=== PATIENT | male | born 1990 | race African-American/Black ===

== ENCOUNTER 2018-06-13 09:59 | Inpatient (IN) | payer OTHER ==
[2018-06-13 12:03] VITALS: BMI 21.6
--- NOTE | 2018-06-13 13:00 | HP ---
COWS - Scale Resting Pulse: 0= [place] 80 or Below Sweatin= Chills/Flushing Restless Observation: 3= Extraneous Movement Pupil Size: 1= Pupils >than Normal Bone or Joint Aches: 2= Severe Diffuse Aches Runny Nose/ Eye Tearin= Runny Nose/Eyes GI Upset > 30mins: 2= Nausea/Diarrhea Tremor Observation: 2= Slight Tremor Visible Yawning Observation: 2= >3x During Session Anxiety or Irritability: 2=Irritable/Anxious Goose Flesh Skin: 0=Smooth Skin COWS Score: 17 CIWA Score - CIWA Score Nausea/Vomitin Muscle Tremors: 3 Anxiety: 2 Agitation: 2 Paroxysmal Sweats: 1-Minimal Palms Moist Orientation: 0-Oriented Tacttile Disturbances: 1-Very Mild Itch/Numbness Auditory Disturbances: 1-Very Mild Visual Disturbances: 1-Very Mild Sensitivity Headache: 2-Mild CIWA-Ar Total Score: 15 Admission ROS BHS - HPI Chief Complaint: i need help to stop using heroin and xanax and marijuana Allergies/Adverse Reactions: Allergies Allergy/AdvReac Type Severity Reaction Status Date / Time No Known Allergies Allergy Verified 06/13/18 12:51 History of Present Illness: this 27 years old male with heroin,xanax and marijuana dependence,seeking detox, withdrawal symptom,last detox 2017 [place] nicotine dependence weight loss blackout multiple admissions in detox,keep relapsing anxiety,depression,insomnia no significant period of sobriety nicotine dependence - Ebola screening Have you traveled outside of the country in the last 21 days: No Have you had contact with anyone from an Ebola affected area: No Have you been sick,other than usual withdrawal symptoms: No Do you have a fever: No - Review of Systems Constitutional: Chills, Loss of Appetite, Malaise, Night Sweats, Changes in sleep, Weakness EENT: reports: Tearing, Nose Congestion Respiratory: reports: No Symptoms reported Cardiac: reports: No Symptoms Reported GI: reports: Diarrhea, Nausea, Vomiting, Abdominal cramping : reports: No Symptoms Reported Musculoskeletal: reports: Back Pain, Joint Pain, Muscle Pain, Joint Stiffness Integumentary: reports: Dryness Neuro: reports: Headache, Tremors Endocrine: reports: No Symptoms Reported Hematology: reports: No Symptoms Reported Psychiatric: reports: No Sypmtoms Reported, Judgement Intact, Mood/Affect Appropiate, Orientated x3, Agitated (insomnia), Depressed Patient History - Patient Medical History Hx Anemia: No Hx Asthma: No Hx Chronic Obstructive Pulmonary Disease (COPD): No Hx Cancer: No Hx Cardiac Disorders: No Hx Congestive Heart Failure: No Hx Hypertension: No Hx Hypercholesterolemia: No Hx Pacemaker: No HX Cerebrovascular Accident: No Hx Seizures: No Hx Dementia: No Hx Diabetes: No Hx Gastrointestinal Disorders: No Hx Liver Disease: No Hx Genitourinary Disorders: No Hx Sexually Transmitted Disorders: No Hx Renal Disease (ESRD): No Hx Thyroid Disease: No Hx Human Immunodeficiency Virus (HIV): No (12/21) Hx Hepatitis C: No Hx Depression: Yes (anxiety,insomnia) Hx Suicide Attempt: No Hx Bipolar Disorder: No Hx Schizophrenia: No Other Medical History: no suicidal,no homicidal - Patient Surgical History Past Surgical History: No - PPD History Previous Implant?: Yes Documented Results: Negative w/o proof Implanted On Prior [facility] Admission?: No PPD to be Administered?: Yes - Smoking Cessation Smoking history: Current every day smoker Have you smoked in the past 12 months: Yes Aproximately how many cigarettes per day: 10 Hx Chewing Tobacco Use: Yes Initiated information on smoking cessation: Yes 'Breaking Loose' booklet given: 06/13/18 - Substance & Tx. History Hx Alcohol Use: No Hx Substance Use: Yes Substance Use Type: Heroin, Tranquilizers Hx Substance Use Treatment: Yes ([place] in 2016) - Substances Abused Heroin Route: Injection Frequency: Daily Amount used: 15 bags Age of first use: 21 Date of Last Use: 06/12/18 Alprazolam (Xanax) Route: Oral Frequency: Daily Amount used: 4mg Age of first use: 21 Date of Last Use: 06/11/18 Marijuana/Hashish Route: Smoking Frequency: 3-6 times per week Amount used: 1 gram Age of first use: 11 Date of Last Use: 06/12/18 Family Disease History - Family Disease History Family Disease History: Other: Father (dsa,alcohol) Admission Physical Exam BHS - Vital Signs Vital Signs: Vital Signs - 24 hr 06/13/18 11:58 Temperature 96.9 F L Pulse Rate 59 L Respiratory 18 Rate Blood Pressure 119/72 - Physical General Appearance: Yes: Moderate Distress, Tremorous, Irritable, Sweating, Anxious HEENTM: Yes: Normal ENT Inspection, ROSANA, Pharynx Normal Respiratory: Yes: Lungs Clear, Normal Breath Sounds, No Respiratory Distress Neck: Yes: Within Normal Limits, No masses,lesions,Nodules, Supple Breast: Yes: Within Normal Limits Cardiology: Yes: Within Normal Limits, Regular Rhythm, Regular Rate, S1, S2 Abdominal: Yes: Within Normal Limits, Normal Bowel Sounds, Non Tender, Flat, Soft Genitourinary: Yes: Within Normal Limits Back: Yes: Muscle Spasm Musculoskeletal: Yes: Back pain, Joint Stiffness, Muscle Pain Extremities: Yes: Within Normal Limits, Normal Range of Motion, Tremors Neurological: Yes: mold worker II-XII NML intact, Fully Oriented, Alert, Motor Strength 5/5 Integumentary: Yes: Dry, Track [place] Lymphatic: Yes: Within Normal Limits - Diagnostic (1) Opioid dependence with withdrawal Current Visit: Yes Status: Acute (2) Uncomplicated sedative, hypnotic or anxiolytic withdrawal Current Visit: Yes Status: Acute (3) Nicotine dependence Current Visit: Yes Status: Chronic (4) Weight loss Current Visit: Yes Status: Acute (5) IVDU (intravenous drug user) Current Visit: Yes Status: Acute (6) Insomnia secondary to depression with anxiety Current Visit: Yes Status: Acute Cleared for Admission [facility] - Detox or Rehab [facility] Level of Care: Medically Managed Detox Regimen/Protocol: Methadone/Valium S Breath Alcohol Content Breath Alcohol Content: 0 Urine Drug Screen - Results Drug Screen Negative: No Urine Drug Screen Results: THC-Marijuana, OPI-Opiates, BZO-Benzodiazepines, FEN- Fentanyl
[2018-06-13] MEDS ORDERED: IBUPROFEN 400 MG TABLET (FP) PO PRN (13:20)
[2018-06-13] MEDS ORDERED: LOPERAMIDE HCL 2 MG CAPSULE PO PRN (13:20)
[2018-06-13] MEDS ORDERED: guaiFENesin/D-METHORPHAN HB 10 ML UNIT-DOSE CUPS PO PRN (13:20)
[2018-06-13] MEDS ORDERED: P-EPHED 60MG/TRIPROLIDI 2.5MG TABLET PO PRN (13:20)
[2018-06-13] MEDS ORDERED: ACETAMINOPHEN 325 MG TABLET (FP) PO PRN (13:20)
[2018-06-13] MEDS ORDERED: MAGNESIUM CITRATE 300 ML BOTTLE PO PRN (13:20)
[2018-06-13] MEDS ORDERED: MENTHOL/PHENOL 1 EACH UD MM PRN (13:20)
[2018-06-13] MEDS ORDERED: diazePAM 5 MG TABLET PO ONE (14:00)
[2018-06-13] MEDS ORDERED: METHADONE HCL 10 MG TABLET (FOR DETOX USE ONLY) PO ONE ×2 (14:00→23:00)
[2018-06-13] MEDS ORDERED: MELATONIN 5 MG TABLETS PO PRN (22:00)
[2018-06-13] MEDS: THIAMINE HCL 100 MG TABLET (FP) PO SCH (22:06)
[2018-06-13] MEDS: cloNIDine HCL 0.1 MG TABLET PO SCH (22:07)
[2018-06-13] MEDS: CYCLOBENZAPRINE HCL 10 MG TABLET (FP) PO PRN (22:07)
[2018-06-13] MEDS: diazePAM 5 MG TABLET PO SCH (22:07)
[2018-06-14] MEDS: diazePAM 5 MG TABLET PO SCH ×3 (07:15→22:10)
[2018-06-14] MEDS: cloNIDine HCL 0.1 MG TABLET PO SCH ×2 (09:21→22:10)
[2018-06-14] MEDS: PRENATAL VITAMINS W/ FOLIC ACID TABLET (FP) PO SCH (09:21)
[2018-06-14] MEDS: diazePAM 5 MG TABLET PO PRN (09:21)
--- NOTE | 2018-06-14 09:51 | EKG ---
Test Reason : Blood Pressure : / mmHG Vent. Rate : 055 BPM Atrial Rate : 055 BPM P-R Int : 150 ms QRS Dur : 092 ms QT Int : 450 ms P-R-T Axes : 079 068 044 degrees QTc Int : 430 ms SINUS BRADYCARDIA OTHERWISE NORMAL ECG NO PREVIOUS ECGS AVAILABLE Confirmed by KALPANA MONTESINOS, NATASHA ([id number]) on 06/14/2018 9:51:19 AM Referred By: Confirmed By:NATASHA ACUNA MD
[2018-06-14] MEDS ORDERED: METHADONE HCL 10 MG TABLET (FOR DETOX USE ONLY) PO SCH (10:00)
[2018-06-14 10:04] LABS: HEMATOCRIT 41.1 % (35.4-49); HEMOGLOBIN 13.3 GM/dL (11.7-16.9); MCH 27.9 pg (25.7-33.7); MCHC 32.3 g/dl (32.0-35.9); MEAN CELL VOLUME 86.4 fl (80-96); MEAN PLT VOLUME 8.1 fl (7.5-11.1); PLATELET COUNT 214 K/MM3 (134-434); RBC 4.76 M/mm3 (4.00-5.60); WHITE BLOOD COUNT 5.2 K/mm3 (4.0-10.0)
[2018-06-14 10:56] LABS: ALBUMIN 3.3 g/dl (3.4-5.0); ALK PHOS 115 U/L (45-117); ANION GAP 7 MMOL/L (8-16); BILIRUBIN,TOTAL 0.6 mg/dL (0.2-1); BLOOD UREA NITROGEN 10 mg/dL (7-18); CALCIUM 8.9 mg/dL (8.5-10.1); CHLORIDE 107 mmol/L (98-107); CO2 27 mmol/L (21-32); CREATININE 0.6 mg/dL (0.55-1.3); GLUCOSE,RANDOM 82 mg/dL (74-106); POTASSIUM 4.5 mmol/L (3.5-5.1); SGOT/AST 26 U/L (15-37); SGPT/ALT 41 U/L (13-61); SODIUM 141 mmol/L (136-145)
--- NOTE | 2018-06-14 11:56 | PN ---
[facility] CIWA - CIWA Score Nausea/Vomitin Muscle Tremors: 4-Moderate,w/Arms Extend Anxiety: 4-Mod. Anxious/Guarded Agitation: 4-Moderately Restless Paroxysmal Sweats: 3 Orientation: 0-Oriented Tacttile Disturbances: 1-Very Mild Itch/Numbness Auditory Disturbances: 0-None Visual Disturbances: 0-None Headache: 0-None Present CIWA-Ar Total Score: 18 S COWS - Scale Resting Pulse: 0= [place] 80 or Below Sweatin= Chills/Flushing Restless Observation: 3= Extraneous Movement Pupil Size: 1= Pupils >than Normal Bone or Joint Aches: 2= Severe Diffuse Aches Runny Nose/ Eye Tearin= Runny Nose/Eyes GI Upset > 30mins: 3= Vomiting/Diarrhea Tremor Observation of Outstretched Hands: 2= Slight Tremor Visible Yawning Observation: 1= 1-2x During Session Anxiety or Irritability: 2=Irritable/Anxious Goose Flesh Skin: 0=Smooth Skin COWS Score: 17 S Progress Note (SOAP) Subjective: Runny nose, fatigue, watery eyes, chills, sweating, interrupted sleep Objective: 06/14/18 11:55 Last Vital Signs Temp Pulse Resp BP Pulse Ox 97.6 F 69 18 112/63 06/14/18 09:20 06/14/18 09:20 06/14/18 09:20 06/14/18 09:20 Laboratory Tests 06/13/18 06/14/18 06/14/18 07:30 07:30 07:30 WBC 5.2 RBC 4.76 Hgb 13.3 Hct 41.1 MCV 86.4 MCH 27.9 MCHC 32.3 RDW 15.0 Plt Count 214 MPV 8.1 Sodium 141 Potassium 4.5 Chloride 107 Carbon Dioxide 27 Anion Gap 7 L BUN 10 Creatinine 0.6 Creat Clearance w eGFR > 60 Random Glucose 82 Calcium 8.9 Total Bilirubin 0.6 AST 26 ALT 41 Alkaline Phosphatase 115 Total Protein 7.0 Albumin 3.3 L RPR Titer HIV 1&2 Antibody Screen Negative HIV P24 Antigen Negative 06/14/18 07:30 WBC RBC Hgb Hct MCV MCH MCHC RDW Plt Count MPV Sodium Potassium Chloride Carbon Dioxide Anion Gap BUN Creatinine Creat Clearance w eGFR Random Glucose Calcium Total Bilirubin AST ALT Alkaline Phosphatase Total Protein Albumin RPR Titer Nonreactive HIV 1&2 Antibody Screen HIV P24 Antigen Labs reviewed Assessment: 06/14/18 11:55 Withdrawal sxs Plan: Continue detox Encouraged PO water intake for hydration
--- NOTE | 2018-06-14 17:02 | CONSULT ---
[facility] Psychiatric Consult - Data Date of interview: 06/14/18 Admission source: [facility] Identifying data: First admission to [facility] for this 27 y/o AA male seeking detoxification treatment on for heroin,xanax and cannabis dependence.Patient is single withput dependents,homeless,unemployed and supported on odd jobs. Substance Abuse History: Confirmed by the patient in this session.Details in current [facility] report as follows : Smoking history: Current every day smoker. Have you smoked in the past 12 months: Yes. Aproximately how many cigarettes per day: 10. Hx Chewing Tobacco Use: Yes. Initiated information on smoking cessation: Yes. 'Breaking Loose' booklet given: 06/13/18. - Substance & Tx. History. Hx Alcohol Use: No. Hx Substance Use: Yes. Substance Use Type: Heroin, Tranquilizers. Hx Substance Use Treatment: Yes ([place] in 2017) Medical History: Patient endorses good general health. Psychiatric History: No reported history of psychiatric hospitalizations or suode attempts.Mr Stafford indicates prior treatment with fluoxetine for depression and anxiety.Never followed with OPD care.Stopped taking prozac after his discharge (from detox/rehab unit) months ago. Physical/Sexual Abuse/Trauma History: Patient denies. Additional Comment: Urine Drug Screen Results: THC-Marijuana, OPI-Opiates, BZO- Benzodiazepines, FEN-Fentanyl.Noted. Mental Status Exam - Mental Status Exam Alert and Oriented to: Time, Place, Person Cognitive Function: Good Patient Appearance: Unkempt, Disheveled (tattoos all over : neck,chest,upper extremities) Mood: Nervous, Withdrawn Affect: Mood Congruent, Constricted Patient Behavior: Fatigued, Cooperative Speech Pattern: Clear Voice Loudness: Normal Thought Process: Goal Oriented Thought Disorder: Not Present Hallucinations: Denies Suicidal Ideation: Denies Homicidal Ideation: Denies Insight/Judgement: Poor Sleep: Poorly, Difficulty falling asleep Appetite: Good Muscle strength/Tone: Normal Gait/Station: Normal Psychiatric Findings - Problem List ([place] 1, 2,3) (1) Opioid dependence with withdrawal Current Visit: Yes Status: Acute (2) Uncomplicated sedative, hypnotic or anxiolytic withdrawal Current Visit: Yes Status: Acute (3) Cannabis dependence Current Visit: Yes Status: Acute (4) Nicotine dependence Current Visit: Yes Status: Chronic (5) Substance induced mood disorder Current Visit: Yes Status: Acute (6) Insomnia Current Visit: Yes Status: Acute - Initial Treatment Plan Initial Treatment Plan: Psychoeducation.Sleep hygiene.Detoxification.Ambien 10 mg po hs prn (patient's specific request).Patient is made aware of risk of parasomnias.Observation.
[2018-06-14] MEDS: THIAMINE HCL 100 MG TABLET (FP) PO SCH (22:09)
[2018-06-14] MEDS: ZOLPIDEM TARTRATE 10 MG TABLET (PARK CARE ONLY) PO PRN (22:10)
[2018-06-14 23:15] LABS: URINE APPEARANCE CLEAR; URINE BILIRUBIN NEGATIVE (<2.0 mg/dL); URINE COLOR LTYELLOW; URINE GLUCOSE (UA) NEGATIVE (NEGATIVE); URINE KETONE NEGATIVE (NEGATIVE); URINE LEUK ESTERASE NEGATIVE (NEGATIVE); URINE NITRITE NEGATIVE (NEGATIVE); URINE PROTEIN NEGATIVE (NEGATIVE); URINE UROBILINOGEN NEGATIVE mg/dL (0.2-1.0)
[2018-06-15] MEDS: PRENATAL VITAMINS W/ FOLIC ACID TABLET (FP) PO SCH (10:06)
[2018-06-15] MEDS: cloNIDine HCL 0.1 MG TABLET PO SCH ×2 (10:06→22:11)
[2018-06-15] MEDS: diazePAM 5 MG TABLET PO SCH ×2 (10:06→22:11)
[2018-06-15] MEDS: METHADONE HCL 5 MG TABLET (FOR DETOX USE ONLY) PO SCH (10:06)
--- NOTE | 2018-06-15 11:52 | PN ---
S CIWA - CIWA Score Nausea/Vomitin Muscle Tremors: 4-Moderate,w/Arms Extend Anxiety: 3 Agitation: 3 Paroxysmal Sweats: 3 Orientation: 0-Oriented Tacttile Disturbances: 0-None Auditory Disturbances: 0-None Visual Disturbances: 0-None Headache: 0-None Present CIWA-Ar Total Score: 15 BHS COWS - Scale Resting Pulse: 1= [place] 81-100 Sweatin= Chills/Flushing Restless Observation: 3= Extraneous Movement Pupil Size: 0= Normal to Room Light Bone or Joint Aches: 2= Severe Diffuse Aches Runny Nose/ Eye Tearin= Runny Nose/Eyes GI Upset > 30mins: 2= Nausea/Diarrhea Tremor Observation of Outstretched Hands: 2= Slight Tremor Visible Yawning Observation: 0= None Anxiety or Irritability: 2=Irritable/Anxious Goose Flesh Skin: 0=Smooth Skin COWS Score: 15 S Progress Note (SOAP) Subjective: Runny nose, watery eyes, chills, nausea, diarrhea, interrupted sleep Objective: 06/15/18 11:52 Last Vital Signs Temp Pulse Resp BP Pulse Ox 97 F L 86 20 125/70 06/15/18 09:07 06/15/18 09:07 06/15/18 09:07 06/15/18 09:07 Laboratory Tests 06/13/18 06/14/18 06/14/18 07:30 07:30 07:30 WBC 5.2 RBC 4.76 Hgb 13.3 Hct 41.1 MCV 86.4 MCH 27.9 MCHC 32.3 RDW 15.0 Plt Count 214 MPV 8.1 Sodium 141 Potassium 4.5 Chloride 107 Carbon Dioxide 27 Anion Gap 7 L BUN 10 Creatinine 0.6 Creat Clearance w eGFR > 60 Random Glucose 82 Calcium 8.9 Total Bilirubin 0.6 AST 26 ALT 41 Alkaline Phosphatase 115 Total Protein 7.0 Albumin 3.3 L Urine Color Urine Appearance Urine pH Ur Specific [place] Urine Protein Urine Glucose (UA) Urine Ketones Urine Blood Urine Nitrite Urine Bilirubin Urine Urobilinogen Ur Leukocyte Esterase RPR Titer HIV 1&2 Antibody Screen Negative HIV P24 Antigen Negative 06/14/18 06/14/18 07:30 23:00 WBC RBC Hgb Hct MCV MCH MCHC RDW Plt Count MPV Sodium Potassium Chloride Carbon Dioxide Anion Gap BUN Creatinine Creat Clearance w eGFR Random Glucose Calcium Total Bilirubin AST ALT Alkaline Phosphatase Total Protein Albumin Urine Color Ltyellow Urine Appearance Clear Urine pH 8.0 Ur Specific [place] 1.012 Urine Protein Negative Urine Glucose (UA) Negative Urine Ketones Negative Urine Blood Negative Urine Nitrite Negative Urine Bilirubin Negative Urine Urobilinogen Negative Ur Leukocyte Esterase Negative RPR Titer Nonreactive HIV 1&2 Antibody Screen HIV P24 Antigen Labs reviewed Assessment: 06/15/18 12:01 Withdrawal sxs Plan: Continue detox
[2018-06-15] MEDS: diazePAM 5 MG TABLET PO PRN (16:40)
[2018-06-15] MEDS: MAG HYDROX/AL HYDROX/SIMETH 30 ML UNIT-DOSE CUP PO PRN (16:44)
[2018-06-15] MEDS: CYCLOBENZAPRINE HCL 10 MG TABLET (FP) PO PRN (22:11)
[2018-06-15] MEDS: ZOLPIDEM TARTRATE 10 MG TABLET (PARK CARE ONLY) PO PRN (22:11)
[2018-06-15] MEDS: THIAMINE HCL 100 MG TABLET (FP) PO SCH (22:11)
[2018-06-16] MEDS: METHADONE HCL 5 MG TABLET (FOR DETOX USE ONLY) PO SCH (10:07)
[2018-06-16] MEDS: PRENATAL VITAMINS W/ FOLIC ACID TABLET (FP) PO SCH (10:07)
[2018-06-16] MEDS: cloNIDine HCL 0.1 MG TABLET PO SCH ×2 (10:07→22:20)
[2018-06-16] MEDS: diazePAM 5 MG TABLET PO SCH ×2 (10:07→22:20)
--- NOTE | 2018-06-16 12:52 | PN ---
BHS Progress Note (SOAP) Subjective: Denies any complaints; appears anxious Objective: 06/16/18 12:50 Last Vital Signs Temp Pulse Resp BP Pulse Ox 97.7 F 75 16 115/64 06/16/18 09:47 06/16/18 09:47 06/16/18 09:47 06/16/18 09:47 Laboratory Tests 06/13/18 06/14/18 06/14/18 07:30 07:30 07:30 WBC 5.2 RBC 4.76 Hgb 13.3 Hct 41.1 MCV 86.4 MCH 27.9 MCHC 32.3 RDW 15.0 Plt Count 214 MPV 8.1 Sodium 141 Potassium 4.5 Chloride 107 Carbon Dioxide 27 Anion Gap 7 L BUN 10 Creatinine 0.6 Creat Clearance w eGFR > 60 Random Glucose 82 Calcium 8.9 Total Bilirubin 0.6 AST 26 ALT 41 Alkaline Phosphatase 115 Total Protein 7.0 Albumin 3.3 L Urine Color Urine Appearance Urine pH Ur Specific [place] Urine Protein Urine Glucose (UA) Urine Ketones Urine Blood Urine Nitrite Urine Bilirubin Urine Urobilinogen Ur Leukocyte Esterase RPR Titer HIV 1&2 Antibody Screen Negative HIV P24 Antigen Negative 06/14/18 06/14/18 07:30 23:00 WBC RBC Hgb Hct MCV MCH MCHC RDW Plt Count MPV Sodium Potassium Chloride Carbon Dioxide Anion Gap BUN Creatinine Creat Clearance w eGFR Random Glucose Calcium Total Bilirubin AST ALT Alkaline Phosphatase Total Protein Albumin Urine Color Ltyellow Urine Appearance Clear Urine pH 8.0 Ur Specific [place] 1.012 Urine Protein Negative Urine Glucose (UA) Negative Urine Ketones Negative Urine Blood Negative Urine Nitrite Negative Urine Bilirubin Negative Urine Urobilinogen Negative Ur Leukocyte Esterase Negative RPR Titer Nonreactive HIV 1&2 Antibody Screen HIV P24 Antigen Labs reviewed Assessment: 06/16/18 12:51 Withdrawal sxs Plan: Continue detox Encouraged PO water intake
[2018-06-16] MEDS: diazePAM 5 MG TABLET PO PRN (13:15)
[2018-06-16] MEDS: MAGNESIUM HYDROX 2400MG/30ML ORAL SUSPENSION 30 ML CUP PO PRN (17:59)
[2018-06-16] MEDS: CYCLOBENZAPRINE HCL 10 MG TABLET (FP) PO PRN (22:20)
[2018-06-16] MEDS: ZOLPIDEM TARTRATE 10 MG TABLET (PARK CARE ONLY) PO PRN (22:20)
[2018-06-16] MEDS: THIAMINE HCL 100 MG TABLET (FP) PO SCH (22:20)
[2018-06-17] MEDS ORDERED: diazePAM 5 MG TABLET PO SCH (10:00)
[2018-06-17] MEDS ORDERED: METHADONE HCL 10 MG TABLET (FOR DETOX USE ONLY) PO SCH (10:00)
[2018-06-17] MEDS: cloNIDine HCL 0.1 MG TABLET PO SCH ×2 (10:06→21:50)
[2018-06-17] MEDS: PRENATAL VITAMINS W/ FOLIC ACID TABLET (FP) PO SCH (10:06)
--- NOTE | 2018-06-17 15:12 | PN ---
BHS Progress Note (SOAP) Subjective: alert,irritable,anxious,pain in the body and back,interrupted sleep Objective: 06/17/18 15:11 Vital Signs Temperature 98.9 F 06/17/18 11:13 Pulse Rate 90 06/17/18 11:13 Respiratory Rate 18 06/17/18 11:13 Blood Pressure 121/73 06/17/18 11:13 O2 Sat by Pulse Oximetry (%) Assessment: 06/17/18 15:11 withdrawal symptom Plan: continue detox
[2018-06-17] MEDS: MAG HYDROX/AL HYDROX/SIMETH 30 ML UNIT-DOSE CUP PO PRN (18:42)
[2018-06-17] MEDS: CYCLOBENZAPRINE HCL 10 MG TABLET (FP) PO PRN (21:50)
[2018-06-17] MEDS: THIAMINE HCL 100 MG TABLET (FP) PO SCH (21:50)
[2018-06-17] MEDS: ZOLPIDEM TARTRATE 10 MG TABLET (PARK CARE ONLY) PO PRN (21:50)
[2018-06-18] MEDS ORDERED: METHADONE HCL 5 MG TABLET (FOR DETOX USE ONLY) PO SCH (06:00)
[2018-06-18] MEDS ORDERED: COLLOIDAL OATMEAL 1 BAR EACH TP PRN (09:37)
[2018-06-18] MEDS: cloNIDine HCL 0.1 MG TABLET PO SCH ×2 (10:06→21:34)
[2018-06-18] MEDS: PRENATAL VITAMINS W/ FOLIC ACID TABLET (FP) PO SCH (10:06)
[2018-06-18] MEDS: MAG HYDROX/AL HYDROX/SIMETH 30 ML UNIT-DOSE CUP PO PRN ×2 (15:23→21:34)
--- NOTE | 2018-06-18 15:36 | PN ---
BHS Progress Note (SOAP) Subjective: Chills, sweating Objective: 06/18/18 15:35 Last Vital Signs Temp Pulse Resp BP Pulse Ox 96.6 F L 102 H 18 124/80 06/18/18 14:09 06/18/18 14:09 06/18/18 14:09 06/18/18 14:09 Laboratory Tests 06/13/18 06/14/18 06/14/18 07:30 07:30 07:30 WBC 5.2 RBC 4.76 Hgb 13.3 Hct 41.1 MCV 86.4 MCH 27.9 MCHC 32.3 RDW 15.0 Plt Count 214 MPV 8.1 Sodium 141 Potassium 4.5 Chloride 107 Carbon Dioxide 27 Anion Gap 7 L BUN 10 Creatinine 0.6 Creat Clearance w eGFR > 60 Random Glucose 82 Calcium 8.9 Total Bilirubin 0.6 AST 26 ALT 41 Alkaline Phosphatase 115 Total Protein 7.0 Albumin 3.3 L Urine Color Urine Appearance Urine pH Ur Specific [place] Urine Protein Urine Glucose (UA) Urine Ketones Urine Blood Urine Nitrite Urine Bilirubin Urine Urobilinogen Ur Leukocyte Esterase RPR Titer HIV 1&2 Antibody Screen Negative HIV P24 Antigen Negative 06/14/18 06/14/18 07:30 23:00 WBC RBC Hgb Hct MCV MCH MCHC RDW Plt Count MPV Sodium Potassium Chloride Carbon Dioxide Anion Gap BUN Creatinine Creat Clearance w eGFR Random Glucose Calcium Total Bilirubin AST ALT Alkaline Phosphatase Total Protein Albumin Urine Color Ltyellow Urine Appearance Clear Urine pH 8.0 Ur Specific [place] 1.012 Urine Protein Negative Urine Glucose (UA) Negative Urine Ketones Negative Urine Blood Negative Urine Nitrite Negative Urine Bilirubin Negative Urine Urobilinogen Negative Ur Leukocyte Esterase Negative RPR Titer Nonreactive HIV 1&2 Antibody Screen HIV P24 Antigen Labs reviewed Assessment: 06/18/18 15:36 Withdrawal sxs Plan: Continue detox Encouraged PO water intake Patient for discharge tomorrow
[2018-06-18] MEDS: MAGNESIUM HYDROX 2400MG/30ML ORAL SUSPENSION 30 ML CUP PO PRN (21:34)
[2018-06-18] MEDS: THIAMINE HCL 100 MG TABLET (FP) PO SCH (21:34)
[2018-06-18] MEDS: hydrOXYzine PAMOATE 25 MG CAPSULE (FP) PO PRN (21:36)
--- NOTE | 2018-06-19 09:08 | DS ---
[facility] Detox Discharge Summary Admission Date: 06/13/18 Discharge Date: 06/19/18 - History Present History: Cannabis Dependence, Opioid Dependence, Sedative Dependence Additional Comments: Patient medically stable. Patient to follow up with primary care provider in 1 - 2 weeks. Pertinent Past History: Vital Signs Temperature 97 F L 06/19/18 09:15 Pulse Rate 61 06/19/18 09:15 Respiratory Rate 16 06/19/18 09:15 Blood Pressure 113/76 06/19/18 09:15 O2 Sat by Pulse Oximetry (%) Laboratory Last Values WBC 5.2 K/mm3 (4.0-10.0) 06/14/18 07:30 RBC 4.76 M/mm3 (4.00-5.60) 06/14/18 07:30 Hgb 13.3 GM/dL (11.7-16.9) 06/14/18 07:30 Hct 41.1 % (35.4-49) 06/14/18 07:30 MCV 86.4 fl (80-96) 06/14/18 07:30 MCH 27.9 pg (25.7-33.7) 06/14/18 07:30 MCHC 32.3 g/dl (32.0-35.9) 06/14/18 07:30 RDW 15.0 % (11.9-15.9) 06/14/18 07:30 Plt Count 214 K/MM3 (134-434) 06/14/18 07:30 MPV 8.1 fl (7.5-11.1) 06/14/18 07:30 Sodium 141 mmol/L (136-145) 06/14/18 07:30 Potassium 4.5 mmol/L (3.5-5.1) 06/14/18 07:30 Chloride 107 mmol/L (98-107) 06/14/18 07:30 Carbon Dioxide 27 mmol/L (21-32) 06/14/18 07:30 Anion Gap 7 MMOL/L (8-16) L 06/14/18 07:30 BUN 10 mg/dL (7-18) 06/14/18 07:30 Creatinine 0.6 mg/dL (0.55-1.3) 06/14/18 07:30 Creat Clearance w eGFR > 60 (>60) 06/14/18 07:30 Random Glucose 82 mg/dL (74-106) 06/14/18 07:30 Calcium 8.9 mg/dL (8.5-10.1) 06/14/18 07:30 Total Bilirubin 0.6 mg/dL (0.2-1) 06/14/18 07:30 AST 26 U/L (15-37) 06/14/18 07:30 ALT 41 U/L (13-61) 06/14/18 07:30 Alkaline Phosphatase 115 U/L (45-117) 06/14/18 07:30 Total Protein 7.0 g/dl (6.4-8.2) 06/14/18 07:30 Albumin 3.3 g/dl (3.4-5.0) L 06/14/18 07:30 Urine Color L[place] 06/14/18 23:00 Urine Appearance Clear 06/14/18 23:00 Urine pH 8.0 (5.0-8.0) 06/14/18 23:00 Ur Specific [place] 1.012 (1.010-1.035) 06/14/18 23:00 Urine Protein Negative (NEGATIVE) 06/14/18 23:00 Urine Glucose (UA) Negative (NEGATIVE) 06/14/18 23:00 Urine Ketones Negative (NEGATIVE) 06/14/18 23:00 Urine Blood Negative (NEGATIVE) 06/14/18 23:00 Urine Nitrite Negative (NEGATIVE) 06/14/18 23:00 Urine Bilirubin Negative (<2.0 mg/dL) 06/14/18 23:00 Urine Urobilinogen Negative mg/dL (0.2-1.0) 06/14/18 23:00 Ur Leukocyte Esterase Negative (NEGATIVE) 06/14/18 23:00 RPR Titer Nonreactive (NONREACTIVE) 06/14/18 07:30 HIV 1&2 Antibody Screen Negative 06/13/18 07:30 HIV P24 Antigen Negative 06/13/18 07:30 - Physical Exam Results Vital Signs: Vital Signs Temperature 97 F L 06/19/18 06:07 Pulse Rate 63 06/19/18 06:07 Respiratory Rate 16 06/19/18 06:07 Blood Pressure 111/66 06/19/18 06:07 O2 Sat by Pulse Oximetry (%) - Treatment Hospital Course: Detox Protocol Followed, Detoxed Safely, Responded well, Discharged Condition Good, Rehab Referral Accepted Patient has Accepted a Rehab Referral to: [facility] - Medication Discharge Medications: Ambulatory Orders NK [No Known Home Medication] 06/13/18 - Diagnosis (1) Cannabis dependence Current Visit: Yes Status: Acute (2) IVDU (intravenous drug user) Current Visit: Yes Status: Acute (3) Opioid dependence with withdrawal Current Visit: Yes Status: Acute (4) Uncomplicated sedative, hypnotic or anxiolytic withdrawal Current Visit: Yes Status: Acute (5) Weight loss Current Visit: Yes Status: Acute (6) Nicotine dependence Current Visit: Yes Status: Chronic Qualifiers: Nicotine product type: cigarettes - AMA Did Patient Leave Against Medical Advice: No
[2018-06-19] MEDS: PRENATAL VITAMINS W/ FOLIC ACID TABLET (FP) PO SCH (09:50)
[2018-06-19] MEDS: hydrOXYzine PAMOATE 25 MG CAPSULE (FP) PO PRN (09:50)
[2018-06-19] MEDS: MAG HYDROX/AL HYDROX/SIMETH 30 ML UNIT-DOSE CUP PO PRN ×2 (09:50→16:19)
[2018-06-19] MEDS: cloNIDine HCL 0.1 MG TABLET PO SCH (09:50)
[2018-06-19 17:46] VITALS: BP 136/83; PULSE 103; TEMP 98.5
== END 2018-06-19 18:55 | disposition other institution (70) | DRG 773 ==
LOC: YASAS 09:59 → Y3N 13:28
PROC: HZ2ZZZZ Detoxification Services for Substance Abuse Treatment (ICD-10-PCS; principal; 2018-06-13)
DX: F11.23 Opioid dependence with withdrawal (principal); F13.230 Sedative, hypnotic or anxiolytic dependence with withdrawal, uncomplicated; F12.20 Cannabis dependence, uncomplicated; F17.210 Nicotine dependence, cigarettes, uncomplicated; F51.05 Insomnia due to other mental disorder; F19.24 Other psychoactive substance dependence with psychoactive substance-induced mood disorder; Z87.898 Personal history of other specified conditions; Z59.0 Homelessness
CPT/HCPCS: 36415; 80053; 81003; 85027; 86593; 87389; 93005; 93010; J0735

== ENCOUNTER 2018-06-19 18:38 | Inpatient (IN) | payer OTHER ==
[2018-06-19] MEDS ORDERED: IBUPROFEN 400 MG TABLET (FP) PO PRN (19:57)
[2018-06-19] MEDS ORDERED: MAGNESIUM CITRATE 300 ML BOTTLE PO PRN (19:57)
[2018-06-19] MEDS ORDERED: LOPERAMIDE HCL 2 MG CAPSULE PO PRN (19:57)
[2018-06-19] MEDS ORDERED: MENTHOL/PHENOL 1 EACH UD MM PRN (19:57)
[2018-06-19] MEDS ORDERED: MAG HYDROX/AL HYDROX/SIMETH 30 ML UNIT-DOSE CUP PO PRN (19:57)
[2018-06-19] MEDS ORDERED: P-EPHED 60MG/TRIPROLIDI 2.5MG TABLET PO PRN (19:57)
[2018-06-19] MEDS ORDERED: MAGNESIUM HYDROX 2400MG/30ML ORAL SUSPENSION 30 ML CUP PO PRN (19:57)
[2018-06-19] MEDS ORDERED: NICOTINE POLACRILEX 2 MG GUM BUC PRN (19:59)
[2018-06-19] MEDS: THIAMINE HCL 100 MG TABLET (FP) PO SCH (23:15)
[2018-06-19] MEDS: MELATONIN 5 MG TABLETS PO PRN (23:15)
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
[2018-06-20] MEDS: hydrOXYzine PAMOATE 50 MG CAPSULE (FP) PO PRN ×2 (08:20→21:59)
[2018-06-20] MEDS: NICOTINE 14 MG/24 HOURS TOPICAL PATCH TD SCH (10:31)
[2018-06-20] MEDS: PRENATAL VITAMINS W/ FOLIC ACID TABLET (FP) PO SCH (10:31)
[2018-06-20] MEDS ORDERED: FLU VACCINE QUAD 60 MCG/0.5 ML (MDV 18-19) IM ONE (12:00)
[2018-06-20] MEDS: SUVOREXANT 10 MG TABLET PO PRN (21:59)
[2018-06-20] MEDS: THIAMINE HCL 100 MG TABLET (FP) PO SCH (21:59)
[2018-06-21] MEDS: ACETAMINOPHEN 325 MG TABLET (FP) PO PRN ×2 (10:30→21:55)
[2018-06-21] MEDS: PRENATAL VITAMINS W/ FOLIC ACID TABLET (FP) PO SCH (10:30)
[2018-06-21] MEDS: hydrOXYzine PAMOATE 50 MG CAPSULE (FP) PO PRN ×2 (10:30→21:53)
[2018-06-21] MEDS: NICOTINE 14 MG/24 HOURS TOPICAL PATCH TD SCH (10:31)
[2018-06-21] MEDS: SUVOREXANT 10 MG TABLET PO PRN (21:53)
[2018-06-21] MEDS: THIAMINE HCL 100 MG TABLET (FP) PO SCH (21:53)
[2018-06-21] MEDS: MELATONIN 5 MG TABLETS PO PRN (21:53)
[2018-06-22] MEDS: PRENATAL VITAMINS W/ FOLIC ACID TABLET (FP) PO SCH (10:32)
[2018-06-22] MEDS: NICOTINE 14 MG/24 HOURS TOPICAL PATCH TD SCH (10:32)
[2018-06-22] MEDS: hydrOXYzine PAMOATE 50 MG CAPSULE (FP) PO PRN ×2 (10:33→18:24)
--- NOTE | 2018-06-22 12:10 | HP ---
ROHINI MONTESINOS Rehab Assess/Revision - Admission History Admitted to Rehab from: [facility] Date of Admission to Rehab: 06/19/18 - Vital signs Vital Signs: Vital Signs Period Temp Pulse Resp BP Sys/Nance Pulse Ox Last 24 Hr 97.6 F 80 16-18 125/78 - Findings Detox History & Physical reviewed: Yes Concur with findings: Yes Inpatient Rehab Admission - Initial Determination Are CD services needed?: Yes Free of communicable disease: Yes Not in need of hospitalization: Yes - Rehab Admission Criteria Patient is meeting Inpatient Rehab admission criteria:: Yes
[2018-06-22] MEDS: THIAMINE HCL 100 MG TABLET (FP) PO SCH (21:51)
[2018-06-22] MEDS: MELATONIN 5 MG TABLETS PO PRN (21:52)
[2018-06-22] MEDS: SUVOREXANT 10 MG TABLET PO PRN (21:52)
[2018-06-23] MEDS: hydrOXYzine PAMOATE 50 MG CAPSULE (FP) PO PRN ×2 (08:31→18:43)
[2018-06-23] MEDS: PRENATAL VITAMINS W/ FOLIC ACID TABLET (FP) PO SCH (10:07)
[2018-06-23] MEDS: NICOTINE 14 MG/24 HOURS TOPICAL PATCH TD SCH (10:07)
[2018-06-23] MEDS: THIAMINE HCL 100 MG TABLET (FP) PO SCH (21:44)
[2018-06-23] MEDS: SUVOREXANT 10 MG TABLET PO PRN (21:45)
[2018-06-23] MEDS: MELATONIN 5 MG TABLETS PO PRN (21:45)
[2018-06-24] MEDS: hydrOXYzine PAMOATE 50 MG CAPSULE (FP) PO PRN ×2 (07:00→21:53)
[2018-06-24] MEDS: PRENATAL VITAMINS W/ FOLIC ACID TABLET (FP) PO SCH (10:31)
[2018-06-24] MEDS: NICOTINE 14 MG/24 HOURS TOPICAL PATCH TD SCH (10:31)
--- NOTE | 2018-06-24 15:11 | PN ---
S Progress Note Note: TC from nurse, Loly, patient requesting to be put back on flomax which he was on at home for urinating problems - same done.
[2018-06-24] MEDS: TAMSULOSIN HCL 0.4 MG CAP PO SCH (15:35)
[2018-06-24] MEDS: MELATONIN 5 MG TABLETS PO PRN (21:53)
[2018-06-24] MEDS: THIAMINE HCL 100 MG TABLET (FP) PO SCH (21:53)
[2018-06-24] MEDS: SUVOREXANT 10 MG TABLET PO PRN (21:53)
[2018-06-25] MEDS: hydrOXYzine PAMOATE 50 MG CAPSULE (FP) PO PRN ×3 (07:47→21:47)
[2018-06-25] MEDS: PRENATAL VITAMINS W/ FOLIC ACID TABLET (FP) PO SCH (10:24)
[2018-06-25] MEDS: TAMSULOSIN HCL 0.4 MG CAP PO SCH (10:24)
[2018-06-25] MEDS: NICOTINE 14 MG/24 HOURS TOPICAL PATCH TD SCH (10:24)
[2018-06-25] MEDS: COLLOIDAL OATMEAL 1 BAR EACH TP PRN (11:11)
[2018-06-25] MEDS: THIAMINE HCL 100 MG TABLET (FP) PO SCH (21:46)
[2018-06-25] MEDS: MELATONIN 5 MG TABLETS PO PRN (21:48)
[2018-06-25] MEDS: SUVOREXANT 10 MG TABLET PO PRN (21:48)
[2018-06-26] MEDS: TAMSULOSIN HCL 0.4 MG CAP PO SCH (10:16)
[2018-06-26] MEDS: NICOTINE 14 MG/24 HOURS TOPICAL PATCH TD SCH (10:16)
[2018-06-26] MEDS: PRENATAL VITAMINS W/ FOLIC ACID TABLET (FP) PO SCH (10:16)
[2018-06-26] MEDS: hydrOXYzine PAMOATE 50 MG CAPSULE (FP) PO PRN ×3 (10:17→21:50)
--- NOTE | 2018-06-26 16:00 | PN ---
[facility] Progress Note Note: PT WAS SEEN TODAY BY STAFF EVELIO BUTTS FROM [facility] RE: HEP C SCREENING RESULT BELOW. MR PAPPAS STATES [facility] WILL FOLLOW UP WITH PATIENT WHEN THE REST OF THE REFLEX TEST RESULTS COME IN(VIRAL LOAD). Laboratory Tests 06/23/18 08:42 Hep C Ab Diagnostic >11.0 high Vital Signs - 24 hr 06/26/18 06/26/18 06/26/18 00:30 03:30 06:45 Temperature 97.5 F L Pulse Rate 89 Respiratory 18 18 18 Rate Blood Pressure 110/73 PT WILL LIKELY BE REFERRED TO HIS PRIMARY CARE PROVIDER FOR FOLLOW UP AFTER REHAB TREATMENT. FOLLOW UP WITH PATIENT'S LAB RESULT.
[2018-06-26] MEDS: SUVOREXANT 10 MG TABLET PO PRN (21:50)
[2018-06-26] MEDS: MELATONIN 5 MG TABLETS PO PRN (21:50)
[2018-06-26] MEDS: THIAMINE HCL 100 MG TABLET (FP) PO SCH (21:50)
[2018-06-27] MEDS: NICOTINE 14 MG/24 HOURS TOPICAL PATCH TD SCH (10:20)
[2018-06-27] MEDS: TAMSULOSIN HCL 0.4 MG CAP PO SCH (10:20)
[2018-06-27] MEDS: PRENATAL VITAMINS W/ FOLIC ACID TABLET (FP) PO SCH (10:20)
[2018-06-27] MEDS: hydrOXYzine PAMOATE 50 MG CAPSULE (FP) PO PRN ×2 (10:21→21:44)
[2018-06-27] MEDS: THIAMINE HCL 100 MG TABLET (FP) PO SCH (21:42)
[2018-06-27] MEDS: SUVOREXANT 10 MG TABLET PO PRN (21:43)
[2018-06-27] MEDS: MELATONIN 5 MG TABLETS PO PRN (21:43)
[2018-06-28] MEDS: PRENATAL VITAMINS W/ FOLIC ACID TABLET (FP) PO SCH (10:44)
[2018-06-28] MEDS: NICOTINE 14 MG/24 HOURS TOPICAL PATCH TD SCH (10:44)
[2018-06-28] MEDS: TAMSULOSIN HCL 0.4 MG CAP PO SCH (10:44)
[2018-06-28] MEDS: hydrOXYzine PAMOATE 50 MG CAPSULE (FP) PO PRN ×2 (16:01→22:15)
[2018-06-28] MEDS: guaiFENesin/D-METHORPHAN HB 10 ML UNIT-DOSE CUPS PO PRN (19:56)
[2018-06-28] MEDS: SUVOREXANT 10 MG TABLET PO PRN (22:16)
[2018-06-28] MEDS: MELATONIN 5 MG TABLETS PO PRN (22:16)
[2018-06-28] MEDS: THIAMINE HCL 100 MG TABLET (FP) PO SCH (22:17)
[2018-06-29] MEDS: TAMSULOSIN HCL 0.4 MG CAP PO SCH (10:30)
[2018-06-29] MEDS: guaiFENesin/D-METHORPHAN HB 10 ML UNIT-DOSE CUPS PO PRN ×2 (10:30→22:01)
[2018-06-29] MEDS: PRENATAL VITAMINS W/ FOLIC ACID TABLET (FP) PO SCH (10:30)
[2018-06-29] MEDS: NICOTINE 14 MG/24 HOURS TOPICAL PATCH TD SCH (10:31)
[2018-06-29] MEDS: hydrOXYzine PAMOATE 50 MG CAPSULE (FP) PO PRN ×3 (10:31→22:00)
--- NOTE | 2018-06-29 15:24 | PN ---
[facility] Progress Note Note: PT IS A 27 Y/O MALE CURRENTLY IN REHAB. PT DETOXED ON [facility] FROM 06/13 TO . PT REPORTS HX OF PROSTATE PROBLEMS SINCE AGE 22 WHICH PROGRESSED WITH HIS USE OF DRUGS. REPORTS HE HAS SEEN UROLOGISTS IN [place] AND [place] FOR COMPLAINT OF "SPLITS IN URINE", RANDOM ERECTIONS AND WAS TOLD HE HAD ENLARGED PROSTATE ON EXAM. ALSO STATED HE HAS BEEN DX WITH [facility] IN THE PAST. PT REPORTS WAS RX FLOMAX WHILE IN [facility] IN [place]. Laboratory Tests 06/23/18 08:42 Hep C Ab Diagnostic >11.0 H HCV RNA PCR w/Genot Rflx [id number] Liver Fibrosis Interp PT WAS SEEN TODAY BY [facility] STAFF RE: ABOVE LAB RESULTS. PT WILL BE F/U BY [facility] OR REFERRED TO APPROPRIATE FACILITY FOR TREATMENT. PLAN:PT TO F/U WITH HCV TREATMENT RECOMMENDATIONS PT TO FOLLOW UP WITH UROLOGY AFTER REHAB TREATMENT.
[2018-06-29] MEDS: THIAMINE HCL 100 MG TABLET (FP) PO SCH (22:00)
[2018-06-29] MEDS: MELATONIN 5 MG TABLETS PO PRN (22:00)
[2018-06-29] MEDS: SUVOREXANT 10 MG TABLET PO PRN (22:00)
[2018-06-30] MEDS: hydrOXYzine PAMOATE 50 MG CAPSULE (FP) PO PRN ×3 (08:52→21:52)
[2018-06-30] MEDS: NICOTINE 14 MG/24 HOURS TOPICAL PATCH TD SCH (10:29)
[2018-06-30] MEDS: TAMSULOSIN HCL 0.4 MG CAP PO SCH (10:29)
[2018-06-30] MEDS: PRENATAL VITAMINS W/ FOLIC ACID TABLET (FP) PO SCH (10:29)
[2018-06-30] MEDS: guaiFENesin/D-METHORPHAN HB 10 ML UNIT-DOSE CUPS PO PRN ×2 (10:30→21:54)
--- NOTE | 2018-06-30 17:44 | PN ---
[facility] Progress Note Note: Psychiatric nurse practitioner note: Belsoa 10mg renewed. Verbal consent given.
[2018-06-30] MEDS: THIAMINE HCL 100 MG TABLET (FP) PO SCH (21:52)
[2018-06-30] MEDS: MELATONIN 5 MG TABLETS PO PRN (21:54)
[2018-06-30] MEDS: SUVOREXANT 10 MG TABLET PO PRN (21:54)
[2018-07-01] MEDS: TAMSULOSIN HCL 0.4 MG CAP PO SCH (10:37)
[2018-07-01] MEDS: hydrOXYzine PAMOATE 50 MG CAPSULE (FP) PO PRN ×2 (10:37→18:03)
[2018-07-01] MEDS: NICOTINE 14 MG/24 HOURS TOPICAL PATCH TD SCH (10:37)
[2018-07-01] MEDS: PRENATAL VITAMINS W/ FOLIC ACID TABLET (FP) PO SCH (10:37)
[2018-07-01] MEDS: guaiFENesin/D-METHORPHAN HB 10 ML UNIT-DOSE CUPS PO PRN (10:38)
[2018-07-01] MEDS: THIAMINE HCL 100 MG TABLET (FP) PO SCH (21:45)
[2018-07-01] MEDS: SUVOREXANT 10 MG TABLET PO PRN (21:46)
[2018-07-01] MEDS: MELATONIN 5 MG TABLETS PO PRN (21:46)
[2018-07-02] MEDS: PRENATAL VITAMINS W/ FOLIC ACID TABLET (FP) PO SCH (10:09)
[2018-07-02] MEDS: hydrOXYzine PAMOATE 50 MG CAPSULE (FP) PO PRN ×2 (10:09→16:39)
[2018-07-02] MEDS: TAMSULOSIN HCL 0.4 MG CAP PO SCH (10:09)
[2018-07-02] MEDS: NICOTINE 14 MG/24 HOURS TOPICAL PATCH TD SCH (10:09)
[2018-07-02] MEDS: guaiFENesin/D-METHORPHAN HB 10 ML UNIT-DOSE CUPS PO PRN (16:40)
[2018-07-02] MEDS: THIAMINE HCL 100 MG TABLET (FP) PO SCH (22:14)
[2018-07-02] MEDS: MELATONIN 5 MG TABLETS PO PRN (22:17)
[2018-07-02] MEDS: SUVOREXANT 10 MG TABLET PO PRN (22:17)
[2018-07-03] MEDS: PRENATAL VITAMINS W/ FOLIC ACID TABLET (FP) PO SCH (10:51)
[2018-07-03] MEDS: hydrOXYzine PAMOATE 50 MG CAPSULE (FP) PO PRN ×3 (10:51→22:21)
[2018-07-03] MEDS: TAMSULOSIN HCL 0.4 MG CAP PO SCH (10:51)
[2018-07-03] MEDS: NICOTINE 14 MG/24 HOURS TOPICAL PATCH TD SCH (10:56)
[2018-07-03] MEDS: COLLOIDAL OATMEAL 1 BAR EACH TP PRN (20:03)
[2018-07-03] MEDS: SUVOREXANT 10 MG TABLET PO PRN (21:55)
[2018-07-03] MEDS: THIAMINE HCL 100 MG TABLET (FP) PO SCH (22:18)
[2018-07-03] MEDS: MELATONIN 5 MG TABLETS PO PRN (22:18)
[2018-07-04] MEDS: hydrOXYzine PAMOATE 50 MG CAPSULE (FP) PO PRN ×3 (09:45→22:04)
[2018-07-04] MEDS: NICOTINE 14 MG/24 HOURS TOPICAL PATCH TD SCH (10:49)
[2018-07-04] MEDS: TAMSULOSIN HCL 0.4 MG CAP PO SCH (10:49)
[2018-07-04] MEDS: PRENATAL VITAMINS W/ FOLIC ACID TABLET (FP) PO SCH (10:49)
[2018-07-04] MEDS: THIAMINE HCL 100 MG TABLET (FP) PO SCH (22:04)
[2018-07-04] MEDS: MELATONIN 5 MG TABLETS PO PRN (22:04)
[2018-07-04] MEDS: guaiFENesin/D-METHORPHAN HB 10 ML UNIT-DOSE CUPS PO PRN (22:05)
[2018-07-05] MEDS: hydrOXYzine PAMOATE 50 MG CAPSULE (FP) PO PRN ×3 (08:55→21:58)
[2018-07-05] MEDS: PRENATAL VITAMINS W/ FOLIC ACID TABLET (FP) PO SCH (10:40)
[2018-07-05] MEDS: NICOTINE 14 MG/24 HOURS TOPICAL PATCH TD SCH (10:41)
[2018-07-05] MEDS: TAMSULOSIN HCL 0.4 MG CAP PO SCH (10:41)
[2018-07-05] MEDS: THIAMINE HCL 100 MG TABLET (FP) PO SCH (21:58)
--- NOTE | 2018-07-05 22:46 | PN ---
[facility] Progress Note Note: Psychiatry Attending's on-call note : Called for renewal of belsomra. Chart reviewed. Patient already known to me. Progress notes from Dr Diez + KAROLYN Hernandez : appreciated. Intervention discussed, via telephone, with the patient. History taken. Patient reports belsomra as effective + well tolerated. Requests continuation. Mr Stafford is made aware of the benefits of good sleep hygiene. Side effects/benefits of belsomra revisited with the patient. Verbal consent given to this tag writer. Belsomra 10 mg po hs prn. Re-ordered. Discussed with nurse on duty, Ms Schmitz.
[2018-07-05] MEDS: SUVOREXANT 10 MG TABLET PO PRN (22:54)
[2018-07-06] MEDS: TAMSULOSIN HCL 0.4 MG CAP PO SCH (11:09)
[2018-07-06] MEDS: PRENATAL VITAMINS W/ FOLIC ACID TABLET (FP) PO SCH (11:10)
[2018-07-06] MEDS: hydrOXYzine PAMOATE 50 MG CAPSULE (FP) PO PRN ×3 (11:10→21:52)
[2018-07-06] MEDS: NICOTINE 14 MG/24 HOURS TOPICAL PATCH TD SCH (11:22)
[2018-07-06] MEDS: THIAMINE HCL 100 MG TABLET (FP) PO SCH (21:52)
[2018-07-06] MEDS: guaiFENesin/D-METHORPHAN HB 10 ML UNIT-DOSE CUPS PO PRN (21:54)
[2018-07-06] MEDS: SUVOREXANT 10 MG TABLET PO PRN (21:54)
[2018-07-07] MEDS: TAMSULOSIN HCL 0.4 MG CAP PO SCH (09:51)
[2018-07-07] MEDS: hydrOXYzine PAMOATE 50 MG CAPSULE (FP) PO PRN (09:51)
[2018-07-07] MEDS: PRENATAL VITAMINS W/ FOLIC ACID TABLET (FP) PO SCH (09:52)
[2018-07-07] MEDS: NICOTINE 14 MG/24 HOURS TOPICAL PATCH TD SCH (09:52)
--- NOTE | 2018-07-07 11:45 | PN ---
Psychiatric Progress Note Vital Signs: Vital Signs Period Temp Pulse Resp BP Sys/Nance Pulse Ox Last 24 Hr 98.0 F-98.0 F 79-79 18-18 130-130/73-73 Date of Session: 07/07/18 Chief Complaint:: Marcial depressed,I have no energy. HPI: Opioid,anxiolytic dependence comorbid with Substance induced mood disorder. ROS: Hep C. Current Medications: Active Medications Generic Name Dose Route Start Last Admin Trade Name Freq PRN Reason Stop Dose Admin Acetaminophen 650 mg 06/19/18 19:57 06/21/18 21:55 Tylenol - PO 650 mg Q4H PRN Administration FEVER Al Hydroxide/Mg Hydroxide 30 ml 06/19/18 19:57 06/21/18 10:31 Mylanta Oral Suspension - PO 30 ml Q6H PRN Administration DYSPEPSIA Colloidal Oatmeal 1 applic 06/25/18 10:31 07/03/18 20:03 Aveeno Soap - TP 1 applic DAILY PRN Administration HYGEINE Eucalyptus/Menthol/Phenol/Sorbitol 1 each 06/19/18 19:57 Cepastat Lozenge - MM Q4H PRN SORE THROAT Guaifenesin 10 ml 06/19/18 19:57 07/06/18 21:54 Robitussin Dm - PO 10 ml Q6H PRN Administration COUGH Hydroxyzine Pamoate 50 mg 06/19/18 19:57 07/07/18 09:51 Vistaril - PO 50 mg Q4H PRN Administration AGITATION Ibuprofen 400 mg 06/19/18 19:57 Motrin - PO Q6H PRN Pain Level 4-6 Loperamide HCl 4 mg 06/19/18 19:57 Imodium - PO Q6H PRN DIARRHEA Magnesium Citrate 300 ml 06/19/18 19:57 Citroma - PO Q48H PRN CONSTIPATION Magnesium Hydroxide 30 ml 06/19/18 19:57 Milk Of Magnesia - PO DAILY PRN CONSTIPATION Nicotine 14 mg 06/20/18 10:00 07/07/18 09:52 Nicoderm Patch - TD Not Given DAILY BRYAN Nicotine Polacrilex 2 mg 06/19/18 19:59 Nicorette Gum - BUC Q2H PRN NICOTINE REPLACEMENT RX Multivit/Folic Acid/Iron 1 tab 06/20/18 10:00 07/07/18 09:52 Vitamins (Sjr) - PO 1 tab DAILY BRYAN Administration Pseudoephedrine/Triprolidine 1 combo 06/19/18 19:57 Actifed - PO TID PRN NASAL CONGESTION Suvorexant 10 mg 07/05/18 22:38 07/06/18 21:54 Belsomra PO 10 mg HS PRN Administration INSOMNIA Tamsulosin HCl 0.4 mg 06/24/18 15:15 07/07/18 09:51 Flomax - PO 0.4 mg DAILY BRYAN Administration Thiamine HCl 100 mg 06/19/18 22:00 07/06/18 21:52 Vitamin B1 - PO 100 mg HS BRYAN Administration Current Side Effect: No Lab tests ordered: No Lab tests reviewed: Yes Provider note:: Chart was revuewed,'s notes appreciated,met with the patient.He addressed ongoing depressed mood,low energy,sleeping difficulties.he was treated with antidepressants in the past(Prozac,then celexa) with no response.Patient is willing to start another sspi trial.Properties of lexapro has been discussed with the patient including side effects,benefits and dose asdjustement. Lexapro 10 mg po daily will be stqrted today. Supportive therapy provided. Total face to face time:: 35 Mental Status Exam - Mental Status Exam Alert and Oriented to: Time, Place, Person Cognitive Function: Grossly Intact Patient Appearance: Well Groomed Mood: Sad Affect: Mood Congruent, Constricted Patient Behavior: Cooperative Speech Pattern: Clear Voice Loudness: Normal Thought Process: Goal Oriented Thought Disorder: Not Present Hallucinations: Denies Suicidal Ideation: Denies Homicidal Ideation: Denies Insight/Judgement: Fair Sleep: Difficulty falling asleep Appetite: Fair Muscle strength/Tone: Normal Gait/Station: Normal Psychiatric Treatment Plan - Problem List (1) Opioid dependence Current Visit: Yes (2) Sedative hypnotic or anxiolytic dependence Current Visit: Yes (3) Substance induced mood disorder Current Visit: Yes (4) Cannabis dependence Current Visit: No
[2018-07-07] MEDS: hydrOXYzine PAMOATE 50 MG CAPSULE (FP) PO SCH ×3 (12:07→21:40)
[2018-07-07] MEDS: ESCITALOPRAM OXALATE 10 MG TABLET (FP) PO SCH (12:07)
[2018-07-07] MEDS: THIAMINE HCL 100 MG TABLET (FP) PO SCH (21:40)
[2018-07-07] MEDS: SUVOREXANT 10 MG TABLET PO PRN (21:41)
[2018-07-08] MEDS: hydrOXYzine PAMOATE 50 MG CAPSULE (FP) PO SCH ×3 (06:42→21:56)
[2018-07-08] MEDS: PRENATAL VITAMINS W/ FOLIC ACID TABLET (FP) PO SCH (10:05)
[2018-07-08] MEDS: TAMSULOSIN HCL 0.4 MG CAP PO SCH (10:05)
[2018-07-08] MEDS: ESCITALOPRAM OXALATE 10 MG TABLET (FP) PO SCH (10:05)
[2018-07-08] MEDS: NICOTINE 14 MG/24 HOURS TOPICAL PATCH TD SCH (10:06)
[2018-07-08] MEDS: guaiFENesin/D-METHORPHAN HB 10 ML UNIT-DOSE CUPS PO PRN (21:56)
[2018-07-08] MEDS: SUVOREXANT 10 MG TABLET PO PRN (21:56)
[2018-07-08] MEDS: THIAMINE HCL 100 MG TABLET (FP) PO SCH (21:56)
[2018-07-09] MEDS: hydrOXYzine PAMOATE 50 MG CAPSULE (FP) PO SCH ×3 (06:41→21:04)
[2018-07-09] MEDS: PRENATAL VITAMINS W/ FOLIC ACID TABLET (FP) PO SCH (09:29)
[2018-07-09] MEDS: TAMSULOSIN HCL 0.4 MG CAP PO SCH (09:29)
[2018-07-09] MEDS: ESCITALOPRAM OXALATE 10 MG TABLET (FP) PO SCH (09:29)
[2018-07-09] MEDS: NICOTINE 14 MG/24 HOURS TOPICAL PATCH TD SCH (09:30)
[2018-07-09] MEDS: THIAMINE HCL 100 MG TABLET (FP) PO SCH (21:05)
[2018-07-10] MEDS: hydrOXYzine PAMOATE 50 MG CAPSULE (FP) PO SCH ×3 (06:43→21:03)
[2018-07-10] MEDS: COLLOIDAL OATMEAL 1 BAR EACH TP PRN (07:38)
[2018-07-10] MEDS: TAMSULOSIN HCL 0.4 MG CAP PO SCH (09:56)
[2018-07-10] MEDS: PRENATAL VITAMINS W/ FOLIC ACID TABLET (FP) PO SCH (09:56)
[2018-07-10] MEDS: ESCITALOPRAM OXALATE 10 MG TABLET (FP) PO SCH (09:56)
[2018-07-10] MEDS: NICOTINE 14 MG/24 HOURS TOPICAL PATCH TD SCH (09:57)
[2018-07-10] MEDS: THIAMINE HCL 100 MG TABLET (FP) PO SCH (21:04)
[2018-07-11] MEDS: hydrOXYzine PAMOATE 50 MG CAPSULE (FP) PO SCH ×3 (06:23→21:04)
[2018-07-11] MEDS: ESCITALOPRAM OXALATE 10 MG TABLET (FP) PO SCH (10:03)
[2018-07-11] MEDS: TAMSULOSIN HCL 0.4 MG CAP PO SCH (10:03)
[2018-07-11] MEDS: PRENATAL VITAMINS W/ FOLIC ACID TABLET (FP) PO SCH (10:04)
[2018-07-11] MEDS: NICOTINE 14 MG/24 HOURS TOPICAL PATCH TD SCH (10:04)
[2018-07-11] MEDS: THIAMINE HCL 100 MG TABLET (FP) PO SCH (21:04)
[2018-07-12] MEDS: hydrOXYzine PAMOATE 50 MG CAPSULE (FP) PO SCH ×3 (06:39→21:09)
[2018-07-12] MEDS: TAMSULOSIN HCL 0.4 MG CAP PO SCH (09:46)
[2018-07-12] MEDS: ESCITALOPRAM OXALATE 10 MG TABLET (FP) PO SCH (09:46)
[2018-07-12] MEDS: PRENATAL VITAMINS W/ FOLIC ACID TABLET (FP) PO SCH (09:46)
[2018-07-12] MEDS: NICOTINE 14 MG/24 HOURS TOPICAL PATCH TD SCH (10:53)
[2018-07-12] MEDS: THIAMINE HCL 100 MG TABLET (FP) PO SCH (21:09)
[2018-07-13] MEDS: hydrOXYzine PAMOATE 50 MG CAPSULE (FP) PO SCH ×3 (06:58→21:09)
[2018-07-13] MEDS: ESCITALOPRAM OXALATE 10 MG TABLET (FP) PO SCH (10:00)
[2018-07-13] MEDS: PRENATAL VITAMINS W/ FOLIC ACID TABLET (FP) PO SCH (10:00)
[2018-07-13] MEDS: TAMSULOSIN HCL 0.4 MG CAP PO SCH (10:00)
[2018-07-13] MEDS: NICOTINE 14 MG/24 HOURS TOPICAL PATCH TD SCH (10:00)
--- NOTE | 2018-07-13 16:07 | PN ---
Psychiatric Progress Note Vital Signs: Vital Signs Period Temp Pulse Resp BP Sys/Nance Pulse Ox Last 24 Hr 97.5 F 81 18-18 120/68 Date of Session: 07/13/18 Chief Complaint:: "I can't sleep and i feel out of it." HPI: Patient admitted to for opioid and benzodiazepine dependence. ROS: denies. endorses good health. Current Medications: Active Medications Generic Name Dose Route Start Last Admin Trade Name Freq PRN Reason Stop Dose Admin Acetaminophen 650 mg 06/19/18 19:57 06/21/18 21:55 Tylenol - PO 650 mg Q4H PRN Administration FEVER Al Hydroxide/Mg Hydroxide 30 ml 06/19/18 19:57 06/21/18 10:31 Mylanta Oral Suspension - PO 30 ml Q6H PRN Administration DYSPEPSIA Colloidal Oatmeal 1 applic 06/25/18 10:31 07/10/18 07:38 Aveeno Soap - TP 1 applic DAILY PRN Administration HYGEINE Escitalopram Oxalate 10 mg 07/07/18 12:15 07/13/18 10:00 Lexapro - PO 10 mg DAILY BRYAN Administration Eucalyptus/Menthol/Phenol/Sorbitol 1 each 06/19/18 19:57 Cepastat Lozenge - MM Q4H PRN SORE THROAT Guaifenesin 10 ml 06/19/18 19:57 07/08/18 21:56 Robitussin Dm - PO 10 ml Q6H PRN Administration COUGH Hydroxyzine Pamoate 100 mg 07/07/18 12:00 07/13/18 14:29 Vistaril - PO 100 mg TID BRYAN Administration Ibuprofen 400 mg 06/19/18 19:57 Motrin - PO Q6H PRN Pain Level 4-6 Loperamide HCl 4 mg 06/19/18 19:57 Imodium - PO Q6H PRN DIARRHEA Magnesium Citrate 300 ml 06/19/18 19:57 Citroma - PO Q48H PRN CONSTIPATION Magnesium Hydroxide 30 ml 06/19/18 19:57 Milk Of Magnesia - PO DAILY PRN CONSTIPATION Nicotine 14 mg 06/20/18 10:00 07/13/18 10:00 Nicoderm Patch - TD Not Given DAILY BRYAN Nicotine Polacrilex 2 mg 06/19/18 19:59 Nicorette Gum - BUC Q2H PRN NICOTINE REPLACEMENT RX Multivit/Folic Acid/Iron 1 tab 06/20/18 10:00 07/13/18 10:00 Vitamins (Sjr) - PO 1 tab DAILY BRYAN Administration Pseudoephedrine/Triprolidine 1 combo 06/19/18 19:57 Actifed - PO TID PRN NASAL CONGESTION Tamsulosin HCl 0.4 mg 06/24/18 15:15 07/13/18 10:00 Flomax - PO 0.4 mg DAILY BRYAN Administration Thiamine HCl 100 mg 06/19/18 22:00 07/12/18 21:09 Vitamin B1 - PO 100 mg HS BRYAN Administration Medication(s) Change(s): Yes will add mirtzapine 15mg for insomnia. Current Side Effect: No Lab tests ordered: No Lab tests reviewed: Yes Provider note:: Chart reviewed. Dr. Diez and Dr. Bell notes read and appreciated. Patient reports poor sleep. States the belsomra 10mg was not working. Patient agreeable to accepting belsomra 15mg qhs. Benefits and side effects discussed. Verbal consent given. Patient educated on the importance of sleep hygiene. In addition, patient reported feeling down and "out of it". Positive reassurance provided and the importance of not using drugs after discharged was emphasize by senior technical writer. Patient satisfied and receptive to feedback. Total face to face time:: 25 Mental Status Exam - Mental Status Exam Alert and Oriented to: Time, Place, Person Cognitive Function: Good Patient Appearance: Well Groomed Mood: Hopeful, Euthymic Affect: Appropriate, Mood Congruent Patient Behavior: Appropriate, Cooperative Speech Pattern: Clear, Appropriate Voice Loudness: Normal Thought Process: Intact, Goal Oriented Thought Disorder: Not Present Hallucinations: Denies Suicidal Ideation: Denies Homicidal Ideation: Denies Insight/Judgement: Poor Sleep: Poorly Appetite: Fair Muscle strength/Tone: Normal Gait/Station: Normal Psychiatric Treatment Plan - Problem List (1) Opioid dependence Current Visit: Yes (2) Sedative hypnotic or anxiolytic dependence Current Visit: Yes (3) Substance-induced sleep disorder Current Visit: Yes (4) Anxiety disorder Current Visit: Yes (5) Substance induced mood disorder Current Visit: Yes
[2018-07-13] MEDS: SUVOREXANT 15 MG TABLET PO PRN (21:09)
[2018-07-13] MEDS: THIAMINE HCL 100 MG TABLET (FP) PO SCH (21:09)
[2018-07-14] MEDS: hydrOXYzine PAMOATE 50 MG CAPSULE (FP) PO SCH ×3 (06:41→21:04)
[2018-07-14] MEDS: NICOTINE 14 MG/24 HOURS TOPICAL PATCH TD SCH (09:53)
[2018-07-14] MEDS: TAMSULOSIN HCL 0.4 MG CAP PO SCH (09:53)
[2018-07-14] MEDS: PRENATAL VITAMINS W/ FOLIC ACID TABLET (FP) PO SCH (09:53)
[2018-07-14] MEDS: ESCITALOPRAM OXALATE 10 MG TABLET (FP) PO SCH (09:53)
[2018-07-14] MEDS: THIAMINE HCL 100 MG TABLET (FP) PO SCH (21:04)
[2018-07-14] MEDS: SUVOREXANT 15 MG TABLET PO PRN (21:05)
[2018-07-15] MEDS: hydrOXYzine PAMOATE 50 MG CAPSULE (FP) PO SCH ×3 (06:51→21:04)
[2018-07-15] MEDS: TAMSULOSIN HCL 0.4 MG CAP PO SCH (09:43)
[2018-07-15] MEDS: PRENATAL VITAMINS W/ FOLIC ACID TABLET (FP) PO SCH (09:43)
[2018-07-15] MEDS: ESCITALOPRAM OXALATE 10 MG TABLET (FP) PO SCH (09:43)
[2018-07-15] MEDS: NICOTINE 14 MG/24 HOURS TOPICAL PATCH TD SCH (09:43)
[2018-07-15] MEDS: COLLOIDAL OATMEAL 1 BAR EACH TP PRN (14:02)
[2018-07-15] MEDS: THIAMINE HCL 100 MG TABLET (FP) PO SCH (21:04)
[2018-07-15] MEDS: SUVOREXANT 15 MG TABLET PO PRN (21:05)
[2018-07-16] MEDS: hydrOXYzine PAMOATE 50 MG CAPSULE (FP) PO SCH ×3 (06:22→21:02)
[2018-07-16 06:38] VITALS: BP 126/76; PULSE 82; TEMP 97.7
[2018-07-16] MEDS: ESCITALOPRAM OXALATE 10 MG TABLET (FP) PO SCH (09:20)
[2018-07-16] MEDS: TAMSULOSIN HCL 0.4 MG CAP PO SCH (09:21)
[2018-07-16] MEDS: PRENATAL VITAMINS W/ FOLIC ACID TABLET (FP) PO SCH (09:21)
[2018-07-16] MEDS: NICOTINE 14 MG/24 HOURS TOPICAL PATCH TD SCH (09:21)
[2018-07-16] MEDS: THIAMINE HCL 100 MG TABLET (FP) PO SCH (21:02)
[2018-07-16] MEDS: SUVOREXANT 15 MG TABLET PO PRN (21:04)
[2018-07-17] MEDS: hydrOXYzine PAMOATE 50 MG CAPSULE (FP) PO SCH (06:54)
--- NOTE | 2018-07-17 09:06 | PN ---
[facility] Progress Note Note: Patient completd this program today.He has met his treatment goals and will continue to address his issues on outpatient basis.Patient is stable for discharge today.
[2018-07-17] MEDS: NICOTINE 14 MG/24 HOURS TOPICAL PATCH TD SCH (09:42)
[2018-07-17] MEDS: PRENATAL VITAMINS W/ FOLIC ACID TABLET (FP) PO SCH (09:42)
[2018-07-17] MEDS: TAMSULOSIN HCL 0.4 MG CAP PO SCH (09:42)
[2018-07-17] MEDS: ESCITALOPRAM OXALATE 10 MG TABLET (FP) PO SCH (09:42)
--- NOTE | 2018-07-18 09:48 | PN ---
[facility] Progress Note Note: PT COMPLETED REHAB ON 07/17/18 AND DISCHARGED. PT WAS SEEN BY HIS COUNSELOR MS LEBLANC AND ALL DISCHARGE PLANNING AFTERCARE EXPLAINED TO PATIENT. PT WAS ALSO SEEN BY [facility] STAFF, MS MALDONADO ON RE:HEP C TREATMENT AND TREATMENT MODALITY AND FOLLOW UP DISCUSSED WITH PATIENT. PT WAS SEEN BY THIS ACCOUNT MANAGEMENT ASSISTANT AND DISCUSSED NEED FOR FOLLOW UP WITH UROLOGY TO ADDRESS PROSTATE PROBLEMS. THIS ACCOUNT MANAGEMENT ASSISTANT CALLED THE [facility] OF DR[facility] BRODERICK AMADOR ON [facility] FOR APPOINTMENT.PHONE# [phone]. PT SPOKE TO [employer] AND PREFERS TO SET UP APPOINTMENT WITH [employer] ON DAY OF DISCHARGE AFTER HE LEAVES SO HE WILL FURNISH ALL NECESSARY INFORMATION FOR REGISTRATION. PT VERBALIZED UNDERSTANDING OF ALL THESE TREATMENT PLANS AND THE NEED TO FOLLOW UP. ALERT O X 3. NAD. COPY OF UROLOGY CLINIC INFORMATION GIVEN TO THE PATIENT WELL COPY OF LAB RESULTS. Vital Signs (72 hours) 07/17/18 07/17/18 07/17/18 00:25 03:30 06:48 Respiratory Rate PLAN;FOLLOW UP AT [facility] FOR AFTERCARE AFTER D/C FOLLOW UP AT [facility] DISCUSSED IN TIMELINE CALL FOR UROLOGY APPOINTMENT AND FOLLOW UP SCHEDULED FOLLOW UP WITH YOUR PCPFOR MEDICAL MANAGEMENT.
== END 2018-07-17 11:25 | disposition home or self-care (01) | DRG 772 ==
LOC: YASAS 18:38 → Y5N 18:39
PROVIDERS: ADMIT Psychiatry & Neurology Psychiatry; ATTEND Psychiatry & Neurology Psychiatry
PROC: HZ42ZZZ Group Counseling for Substance Abuse Treatment, Cognitive-Behavioral (ICD-10-PCS; principal; 2018-06-19)
DX: F11.20 Opioid dependence, uncomplicated (principal); F13.20 Sedative, hypnotic or anxiolytic dependence, uncomplicated; F12.20 Cannabis dependence, uncomplicated; F17.210 Nicotine dependence, cigarettes, uncomplicated; F19.280 Other psychoactive substance dependence with psychoactive substance-induced anxiety disorder; F19.282 Other psychoactive substance dependence with psychoactive substance-induced sleep disorder; F19.24 Other psychoactive substance dependence with psychoactive substance-induced mood disorder; F41.9 Anxiety disorder, unspecified; B18.2 Chronic viral hepatitis C; Z59.0 Homelessness
CPT/HCPCS: 36415; 86803; 90688; G0008

== ENCOUNTER 2018-10-04 11:00 | Inpatient (IN) | payer OTHER ==
[2018-10-04 11:33] VITALS: BMI 23.8
--- NOTE | 2018-10-04 15:44 | HP ---
COWS - Scale Resting Pulse: 0= IN 80 or Below Sweatin=Flushed/Facial Moisture Restless Observation: 0= Sits Still Pupil Size: 0= Normal to Room Light Bone or Joint Aches: 0= None Runny Nose/ Eye Tearin= Runny Nose/Eyes GI Upset > 30mins: 1= Stomach Cramp Tremor Observation: 0= None Yawning Observation: 0= None Anxiety or Irritability: 4=Extreme Anxiety Goose Flesh Skin: 0=Smooth Skin COWS Score: 9 CIWA Score - Admission Criteria OASAS Guidelines: Admission for Medically Managed Detox: Requires at least one of the followin. CIWA greater than 12 2. Seizures within the past 24 hours 3. Delirium tremens within the past 24 hours 4. Hallucinations within the past 24 hours 5. Acute intervention needed for co occurring medical disorder 6. Acute intervention needed for co occurring psychiatric disorder 7. Severe withdrawal that cannot be handled at a lower level of care (continued vomiting, continued diarrhea, abnormal vital signs) requiring intravenous medication and/or fluids 8. Admission ROS [facility] Allergies/Adverse Reactions: Allergies Allergy/AdvReac Type Severity Reaction Status Date / Time No Known Allergies Allergy Verified 10/04/18 16:17 History of Present Illness: patient here requesting detox from heroin use , reports 10 bags /day since age 25 IVDU in [facility] , needles from the pharmacy , + sharing , + re-using , + abscess, most recently 3 mo ago lanced himself did not seek medical attention , OD x 7 most recently 2 mo ago Narcan by EMS , taken to [facility] in [place] . latest use lunchtime today , current symptoms as above . 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 Exam Limitations: No Limitations - Ebola screening Have you traveled outside of the country in the last 21 days: No Have you had contact with anyone from an Ebola affected area: No Have you been sick,other than usual withdrawal symptoms: No Do you have a fever: No - Review of Systems Constitutional: See HPI EENT: reports: See HPI Respiratory: reports: No Symptoms reported Cardiac: reports: No Symptoms Reported GI: reports: See HPI : reports: Dysuria, Other (reports UTi went to ER 2 d ago given rx , did not fill) Musculoskeletal: reports: No Symptoms Reported Integumentary: reports: Other (IVDU) Neuro: reports: No Symptoms reported Endocrine: reports: No Symptoms Reported Psychiatric: reports: Orientated x3 Patient History - Patient Medical History Hx Anemia: No Hx Asthma: No Hx Chronic Obstructive Pulmonary Disease (COPD): No Hx Cancer: No Hx Cardiac Disorders: No Hx Congestive Heart Failure: No Hx Hypertension: No Hx Hypercholesterolemia: No Hx Pacemaker: No HX Cerebrovascular Accident: No Hx Seizures: No Hx Dementia: No Hx Diabetes: No Hx Gastrointestinal Disorders: No Hx Liver Disease: No Hx Genitourinary Disorders: No Hx Sexually Transmitted Disorders: No Hx Renal Disease (ESRD): No Hx Thyroid Disease: No Hx Human Immunodeficiency Virus (HIV): No (12/21) Hx Hepatitis C: No Hx Depression: Yes Hx Suicide Attempt: No Hx Bipolar Disorder: No Hx Schizophrenia: No - Patient Surgical History Past Surgical History: No - PPD History Date: 06/15/18 - Smoking Cessation Smoking history: Current every day smoker Have you smoked in the past 12 months: Yes Aproximately how many cigarettes per day: 10 Hx Chewing Tobacco Use: Yes Initiated information on smoking cessation: No - Substances Abused Heroin Route: Injection Frequency: Daily Amount used: 2 GRAMS Age of first use: 20 Date of Last Use: 10/04/18 Alprazolam (Xanax) Route: Oral Frequency: Daily Amount used: 4 MG Age of first use: 18 Date of Last Use: 10/03/18 Family Disease History - Family Disease History Family Disease History: Other: Father (dsa,alcohol) Admission Physical Exam [facility] - Vital Signs Vital Signs: Vital Signs - 24 hr 10/04/18 11:31 Temperature 98.9 F Pulse Rate 68 Respiratory 18 Rate Blood Pressure 110/63 - Physical General Appearance: Yes: Disheveled, Mild Distress HEENTM: Yes: EOMI, Hearing grossly Normal, Normocephalic, Normal Voice, Other ( poor dentition) Respiratory: Yes: Chest Non-Tender, Lungs Clear, Normal Breath Sounds Neck: Yes: No masses,lesions,Nodules, Trachea in good position Breast: Yes: Breast Exam Deferred Cardiology: Yes: Regular Rhythm, Regular Rate, S1, S2 Abdominal: Yes: Within Normal Limits, Non Tender, Soft Genitourinary: Yes: Frequency, Dribblimg Back: Yes: Normal Inspection Musculoskeletal: Yes: full range of Motion, Gait Steady Extremities: Yes: Normal Range of Motion, Inflammation (R UE edema at injection site , pt states x 2 days , mild pain w/ palpation , d/w pt referral to ER pt declined . Site w/ mild induration ,mild edema /no erythema.) Neurological: Yes: Motor Strength 5/5 Integumentary: Yes: Track [place] (vinny UE), Other (pt declined transfer to ER , was made aware of risks and possible complications) - Diagnostic (1) Opioid dependence Current Visit: No Status: Acute Qualifiers: Substance use status: uncomplicated Qualified Code(s): F11.20 - Opioid dependence, uncomplicated (2) Sedative hypnotic or anxiolytic dependence Current Visit: No Status: Acute (3) Nicotine dependence Current Visit: No Status: Chronic Qualifiers: Nicotine product type: cigarettes [facility] Breath Alcohol Content Breath Alcohol Content: 0 Urine Drug Screen - Results Drug Screen Negative: No Urine Drug Screen Results: OPI-Opiates, BZO-Benzodiazepines, FEN-Fentanyl
[2018-10-04] MEDS: diazePAM 5 MG TABLET PO PRN (18:23)
--- NOTE | 2018-10-04 19:25 | PN ---
[facility] Progress Note Note: Patient is c/o increased feelings of being sick and having withdrawal symptoms. Objective: Pupils at 7 mm. Skin w/ goose bumps. Increased bowel sounds. Assessment: Increased opiate withdrawal symptoms. Plan: Methadone 10 mg PO now. Tigan for nausea/vomiting
[2018-10-04] MEDS ORDERED: TRIMETHOBENZAMIDE HCL 300 MG CAPSULE PO PRN (19:30)
[2018-10-04] MEDS ORDERED: METHADONE HCL 10 MG TABLET PO ONE (19:30)
[2018-10-04] MEDS ORDERED: METHADONE HCL 10 MG TABLET (FOR DETOX USE ONLY) PO ONE (23:00)
[2018-10-04] MEDS: SULFAMETHOXAZOLE/TRIMETHOPRIM 800MG/160MG D.S. TABLET PO SCH (23:40)
[2018-10-04] MEDS: diazePAM 5 MG TABLET PO SCH (23:41)
[2018-10-05] MEDS: diazePAM 5 MG TABLET PO SCH ×3 (05:41→22:21)
[2018-10-05] MEDS ORDERED: METHADONE HCL 10 MG TABLET (FOR DETOX USE ONLY) PO SCH (10:00)
[2018-10-05] MEDS: diazePAM 5 MG TABLET PO PRN (10:13)
[2018-10-05] MEDS: SULFAMETHOXAZOLE/TRIMETHOPRIM 800MG/160MG D.S. TABLET PO SCH ×2 (10:14→22:21)
[2018-10-05] MEDS ORDERED: IBUPROFEN 600 MG TABLET (FP) PO PRN (12:21)
[2018-10-05] MEDS: hydrOXYzine PAMOATE 50 MG CAPSULE (FP) PO PRN (13:09)
[2018-10-05] MEDS ORDERED: COLLOIDAL OATMEAL 1 BAR EACH TP PRN (13:33)
[2018-10-05] MEDS ORDERED: CYCLOBENZAPRINE HCL 10 MG TABLET (FP) PO PRN (13:33)
[2018-10-05] MEDS ORDERED: cloNIDine HCL 0.1 MG TABLET PO ONE (13:50)
--- NOTE | 2018-10-05 14:52 | PN ---
[facility] COWS - Scale Resting Pulse: 0= [place] 80 or Below Sweatin= Chills/Flushing Restless Observation: 1= Difficult to Sit Still Pupil Size: 0= Normal to Room Light Bone or Joint Aches: 2= Severe Diffuse Aches Runny Nose/ Eye Tearin= None GI Upset > 30mins: 0= None Tremor Observation of Outstretched Hands: 0= None Yawning Observation: 1= 1-2x During Session Anxiety or Irritability: 2=Irritable/Anxious Goose Flesh Skin: 3=Piloerection COWS Score: 10 [facility] Progress Note (SOAP) Subjective: Interrupted Sleep, Anxious, Body Aches, Constipation, Sweating. Objective: PATIENT A & O X 3, OBSERVED AMBULATING ON UNIT. IN NO ACUTE DISTRESS. 10/05/18 14:51 Vital Signs Temperature 98.5 F 10/05/18 13:17 Pulse Rate 76 10/05/18 13:17 Respiratory Rate 18 10/05/18 13:17 Blood Pressure 129/78 10/05/18 13:17 O2 Sat by Pulse Oximetry (%) Assessment: 10/05/18 14:54 WITHDRAWAL SYMPTOMS. Plan: CONTINUE DETOX. INCREASE DAILY PO FLUID INTAKE.
[2018-10-05] MEDS: MAG HYDROX/AL HYDROX/SIMETH 30 ML UNIT-DOSE CUP PO PRN (22:21)
[2018-10-05] MEDS: BACITRACIN 0.9 GM PACKET TP SCH (22:21)
--- NOTE | 2018-10-06 09:46 | CONSULT ---
[facility] Psychiatric Consult - Data Date of interview: 10/06/18 Admission source: [facility] Identifying data: Patient is a 28 year old single male, without children, unemployed, and currently homeless. This is one of multiple admissions for patient. Patient admitted to for opioids and benzodiazepine dependence. Substance Abuse History: Smoking Cessation. Smoking history: Current every day smoker. Have you smoked in the past 12 months: Yes. Aproximately how many cigarettes per day: 10. Hx Chewing Tobacco Use: Yes. Initiated information on smoking cessation: No. - Substances Abused. Heroin. Route: Injection. Frequency: Daily. Amount used: 2 GRAMS. Age of first use: 20. Date of Last Use: 10/04/18. Alprazolam (Xanax). Route: Oral. Frequency: Daily. Amount used: 4 MG. Age of first use: 18. Date of Last Use: 10/03/18 Medical History: hep C (diagnosed one month ago no treatment yet), nepholithiasis age 9 Psychiatric History: Patient denies h/o psychiatric hospitalizations, outpatient care and suicide attempt. Mr. Stafford reports multiple admissions in detox/rehab settings. As per previous entries, patient has been prescribd prozac and celexa in the past. At present, patient reports difficulty sleeping. Physical/Sexual Abuse/Trauma History: denies Mental Status Exam - Mental Status Exam Alert and Oriented to: Time, Place, Person Cognitive Function: Good Patient Appearance: Well Groomed Mood: Withdrawn Affect: Mood Congruent Patient Behavior: Fatigued Speech Pattern: Appropriate Voice Loudness: Moderately Soft/Quiet Thought Process: Intact, Goal Oriented Thought Disorder: Not Present Hallucinations: Denies Suicidal Ideation: Denies Homicidal Ideation: Denies Insight/Judgement: Poor Sleep: Poorly Appetite: Fair Muscle strength/Tone: Normal Gait/Station: Normal Psychiatric Findings - Problem List ([place] 1, 2,3) (1) Opioid dependence with withdrawal Current Visit: Yes Status: Acute (2) Sedative hypnotic or anxiolytic dependence Current Visit: Yes Status: Acute (3) Substance-induced sleep disorder Current Visit: Yes Status: Acute (4) Nicotine dependence Current Visit: No Status: Chronic Qualifiers: Nicotine product type: cigarettes - Initial Treatment Plan Initial Treatment Plan: Psychoeducation provided. Detoxification in progress. Will order Belsomra 10mg qhs prn. Benefits and side effects discussed. Verbal consent given.
[2018-10-06] MEDS ORDERED: METHADONE HCL 5 MG TABLET (FOR DETOX USE ONLY) PO SCH (10:00)
[2018-10-06] MEDS: BACITRACIN 0.9 GM PACKET TP SCH (10:41)
[2018-10-06] MEDS: SULFAMETHOXAZOLE/TRIMETHOPRIM 800MG/160MG D.S. TABLET PO SCH ×2 (10:41→23:21)
[2018-10-06 10:51] LABS: BASO % 1.5 % (0-2.0); EOS % 8.2 % (0-4.5); HEMATOCRIT 40.1 % (35.4-49); HEMOGLOBIN 13.4 GM/dL (11.7-16.9); LYMPH % 22.2 % (8-40); MCH 29.2 pg (25.7-33.7); MCHC 33.3 g/dl (32.0-35.9); MEAN CELL VOLUME 87.4 fl (80-96); MEAN PLT VOLUME 8.4 fl (7.5-11.1); MONO % 9.8 % (3.8-10.2); NEUT % 58.3 % (42.8-82.8); PLATELET COUNT 235 K/MM3 (134-434); RBC 4.59 M/mm3 (4.00-5.60); RDW 14.4 % (11.9-15.9); WHITE BLOOD COUNT 5.5 K/mm3 (4.0-10.0)
[2018-10-06] MEDS: diazePAM 5 MG TABLET PO SCH ×2 (10:54→23:21)
[2018-10-06 10:56] LABS: ALBUMIN 3.2 g/dl (3.4-5.0); ALK PHOS 125 U/L (45-117); ANION GAP 7 MMOL/L (8-16); BILIRUBIN,TOTAL 0.4 mg/dL (0.2-1); BLOOD UREA NITROGEN 11 mg/dL (7-18); CALCIUM 8.7 mg/dL (8.5-10.1); CHLORIDE 110 mmol/L (98-107); CO2 25 mmol/L (21-32); CREATININE 0.7 mg/dL (0.55-1.3); GLUCOSE,RANDOM 91 mg/dL (74-106); POTASSIUM 4.4 mmol/L (3.5-5.1); SGOT/AST 30 U/L (15-37); SGPT/ALT 51 U/L (13-61); SODIUM 143 mmol/L (136-145); TOT PROT 6.3 g/dl (6.4-8.2)
[2018-10-06] MEDS: MAG HYDROX/AL HYDROX/SIMETH 30 ML UNIT-DOSE CUP PO PRN ×2 (11:08→17:25)
[2018-10-06 14:18] LABS: URINE APPEARANCE CLEAR; URINE BILIRUBIN NEGATIVE (<2.0 mg/dL); URINE COLOR STRAW; URINE GLUCOSE (UA) 1+ (NEGATIVE); URINE KETONE NEGATIVE (NEGATIVE); URINE LEUK ESTERASE NEGATIVE (NEGATIVE); URINE NITRITE NEGATIVE (NEGATIVE); URINE PROTEIN 1+ (NEGATIVE); URINE UROBILINOGEN NEGATIVE mg/dL (0.2-1.0)
[2018-10-06 14:19] LABS: EPI CELLS RARE /HPF (FEW); URINE MUCUS RARE
--- NOTE | 2018-10-06 14:49 | PN ---
BHS COWS - Scale Resting Pulse: 0= [place] 80 or Below Sweatin= Chills/Flushing Restless Observation: 1= Difficult to Sit Still Pupil Size: 1= Pupils >than Normal Bone or Joint Aches: 2= Severe Diffuse Aches Runny Nose/ Eye Tearin= Nasal Congestion GI Upset > 30mins: 1= Stomach Cramp Tremor Observation of Outstretched Hands: 1= Tremor [place], Not Seen Yawning Observation: 0= None Anxiety or Irritability: 2=Irritable/Anxious Goose Flesh Skin: 0=Smooth Skin COWS Score: 10 BHS Progress Note (SOAP) Subjective: interrupted sleep, anxious, constipation Objective: 10/06/18 14:47 Vital Signs Temperature 98.0 F 10/06/18 14:10 Pulse Rate 92 H 10/06/18 14:10 Respiratory Rate 18 10/06/18 14:10 Blood Pressure 134/70 10/06/18 14:10 O2 Sat by Pulse Oximetry (%) Laboratory Tests 10/06/18 10/06/18 10/06/18 07:00 07:00 12:10 WBC 5.5 RBC 4.59 Hgb 13.4 Hct 40.1 MCV 87.4 MCH 29.2 MCHC 33.3 RDW 14.4 Plt Count 235 MPV 8.4 Absolute Neuts (auto) 3.2 Neutrophils % 58.3 Lymphocytes % 22.2 Monocytes % 9.8 Eosinophils % 8.2 H Basophils % 1.5 Nucleated RBC % 0 Sodium 143 Potassium 4.4 Chloride 110 H Carbon Dioxide 25 Anion Gap 7 L BUN 11 Creatinine 0.7 Creat Clearance w eGFR > 60 Random Glucose 91 Calcium 8.7 Total Bilirubin 0.4 AST 30 ALT 51 Alkaline Phosphatase 125 H Total Protein 6.3 L Albumin 3.2 L Urine Color Straw Urine Appearance Clear Urine pH 8.0 Ur Specific [place] 1.011 Urine Protein 1+ H Urine Glucose (UA) 1+ H Urine Ketones Negative Urine Blood Negative Urine Nitrite Negative Urine Bilirubin Negative Urine Urobilinogen Negative Ur Leukocyte Esterase Negative Urine WBC (Auto) 4 Urine RBC (Auto) <1 Ur Epithelial Cells Rare Urine Mucus Rare pt aox3, anxious , ambulating Assessment: 10/06/18 14:48 withdrawal sx's Plan: cont. detox increase fluids mom
--- NOTE | 2018-10-06 15:58 | PN ---
S CIWA - CIWA Score Nausea/Vomitin Muscle Tremors: 1-None Visible, but [place] Anxiety: 3 Agitation: 2 Paroxysmal Sweats: 2 Orientation: 0-Oriented Tacttile Disturbances: 1-Very Mild Itch/Numbness Auditory Disturbances: 0-None Visual Disturbances: 0-None Headache: 0-None Present CIWA-Ar Total Score: 12
[2018-10-06] MEDS: diazePAM 5 MG TABLET PO PRN (17:23)
[2018-10-06] MEDS ORDERED: SUVOREXANT 10 MG TABLET PO PRN (22:00)
[2018-10-07] MEDS ORDERED: METHADONE HCL 10 MG TABLET (FOR DETOX USE ONLY) PO SCH (10:00)
[2018-10-07] MEDS: hydrOXYzine PAMOATE 50 MG CAPSULE (FP) PO PRN ×2 (10:45→17:27)
[2018-10-07] MEDS: diazePAM 5 MG TABLET PO SCH ×2 (10:45→22:27)
[2018-10-07] MEDS: BACITRACIN 0.9 GM PACKET TP SCH (10:45)
[2018-10-07] MEDS: SULFAMETHOXAZOLE/TRIMETHOPRIM 800MG/160MG D.S. TABLET PO SCH ×2 (10:45→22:27)
--- NOTE | 2018-10-07 13:10 | PN ---
S Progress Note (SOAP) Subjective: Interrupted sleep, anxiety and irritability,nasal stuffiness Objective: 10/07/18 13:09 Vital Signs 10/07/18 10/07/18 06:46 09:22 Temperature 97.3 F L 96.8 F L Pulse Rate 59 L 75 Respiratory 16 18 Rate Blood Pressure 101/56 L 127/69 Laboratory Last Values WBC 5.5 K/mm3 (4.0-10.0) 10/06/18 07:00 RBC 4.59 M/mm3 (4.00-5.60) 10/06/18 07:00 Hgb 13.4 GM/dL (11.7-16.9) 10/06/18 07:00 Hct 40.1 % (35.4-49) 10/06/18 07:00 MCV 87.4 fl (80-96) 10/06/18 07:00 MCH 29.2 pg (25.7-33.7) 10/06/18 07:00 MCHC 33.3 g/dl (32.0-35.9) 10/06/18 07:00 RDW 14.4 % (11.9-15.9) 10/06/18 07:00 Plt Count 235 K/MM3 (134-434) 10/06/18 07:00 MPV 8.4 fl (7.5-11.1) 10/06/18 07:00 Absolute Neuts (auto) 3.2 K/mm3 (1.5-8.0) 10/06/18 07:00 Neutrophils % 58.3 % (42.8-82.8) 10/06/18 07:00 Lymphocytes % 22.2 % (8-40) 10/06/18 07:00 Monocytes % 9.8 % (3.8-10.2) 10/06/18 07:00 Eosinophils % 8.2 % (0-4.5) H 10/06/18 07:00 Basophils % 1.5 % (0-2.0) 10/06/18 07:00 Nucleated RBC % 0 % (0-0) 10/06/18 07:00 Sodium 143 mmol/L (136-145) 10/06/18 07:00 Potassium 4.4 mmol/L (3.5-5.1) 10/06/18 07:00 Chloride 110 mmol/L (98-107) H 10/06/18 07:00 Carbon Dioxide 25 mmol/L (21-32) 10/06/18 07:00 Anion Gap 7 MMOL/L (8-16) L 10/06/18 07:00 BUN 11 mg/dL (7-18) 10/06/18 07:00 Creatinine 0.7 mg/dL (0.55-1.3) 10/06/18 07:00 Creat Clearance w eGFR > 60 (>60) 10/06/18 07:00 Random Glucose 91 mg/dL (74-106) 10/06/18 07:00 Calcium 8.7 mg/dL (8.5-10.1) 10/06/18 07:00 Total Bilirubin 0.4 mg/dL (0.2-1) 10/06/18 07:00 AST 30 U/L (15-37) 10/06/18 07:00 ALT 51 U/L (13-61) 10/06/18 07:00 Alkaline Phosphatase 125 U/L (45-117) H 10/06/18 07:00 Total Protein 6.3 g/dl (6.4-8.2) L 10/06/18 07:00 Albumin 3.2 g/dl (3.4-5.0) L 10/06/18 07:00 Urine Color Straw 10/06/18 12:10 Urine Appearance Clear 10/06/18 12:10 Urine pH 8.0 (5.0-8.0) 10/06/18 12:10 Ur Specific [place] 1.011 (1.010-1.035) 10/06/18 12:10 Urine Protein 1+ (NEGATIVE) H 10/06/18 12:10 Urine Glucose (UA) 1+ (NEGATIVE) H 10/06/18 12:10 Urine Ketones Negative (NEGATIVE) 10/06/18 12:10 Urine Blood Negative (NEGATIVE) 10/06/18 12:10 Urine Nitrite Negative (NEGATIVE) 10/06/18 12:10 Urine Bilirubin Negative (<2.0 mg/dL) 10/06/18 12:10 Urine Urobilinogen Negative mg/dL (0.2-1.0) 10/06/18 12:10 Ur Leukocyte Esterase Negative (NEGATIVE) 10/06/18 12:10 Urine WBC (Auto) 4 /hpf (3-5) 10/06/18 12:10 Urine RBC (Auto) <1 /hpf (0-3) 10/06/18 12:10 Ur Epithelial Cells Rare /HPF (FEW) 10/06/18 12:10 Urine Mucus Rare 10/06/18 12:10 RPR Titer Nonreactive (NONREACTIVE) 10/06/18 07:00 Labs noted, no panic values Assessment: 10/07/18 13:10 Withdrawal sx Plan: Continue detox
[2018-10-07] MEDS ORDERED: MAGNESIUM HYDROX 2400MG/30ML ORAL SUSPENSION 30 ML CUP PO PRN (17:50)
[2018-10-07] MEDS ORDERED: MAGNESIUM HYDROX 2400MG/30ML ORAL SUSPENSION 30 ML CUP PO ONE (18:00)
[2018-10-08] MEDS ORDERED: METHADONE HCL 5 MG TABLET (FOR DETOX USE ONLY) PO SCH (06:00)
[2018-10-08 09:32] VITALS: BP 123/55; PULSE 73; TEMP 98.1
[2018-10-08] MEDS ORDERED: diazePAM 5 MG TABLET PO SCH (10:00)
[2018-10-08] MEDS: SULFAMETHOXAZOLE/TRIMETHOPRIM 800MG/160MG D.S. TABLET PO SCH (11:18)
[2018-10-08] MEDS: BACITRACIN 0.9 GM PACKET TP SCH (11:19)
--- NOTE | 2018-10-08 16:49 | DS ---
[facility] Detox Discharge Summary Admission Date: 10/04/18 - History Present History: Opioid Dependence - Physical Exam Results Vital Signs: Vital Signs Temperature 98.1 F 10/08/18 09:30 Pulse Rate 73 10/08/18 09:30 Respiratory Rate 20 10/08/18 09:30 Blood Pressure 123/55 L 10/08/18 09:30 O2 Sat by Pulse Oximetry (%) Pertinent Admission Physical Exam Findings: patient here for detox from heroin use. [facility] - Treatment Hospital Course: Detox Protocol Followed, Detoxed Safely, Responded well, Discharged Condition Good, Rehab Referral Accepted - Medication Discharge Medications: Ambulatory Orders Tamsulosin HCl [Flomax -] 0.4 mg PO DAILY #30 cap.er.24h 07/17/18 - AMA Did Patient Leave Against Medical Advice: No
== END 2018-10-08 12:06 | disposition home or self-care (01) | DRG 773 ==
LOC: YASAS 11:00 → Y6N 17:04
PROVIDERS: ADMIT Neuromusculoskeletal Medicine & OMM; ATTEND Neuromusculoskeletal Medicine & OMM
PROC: HZ2ZZZZ Detoxification Services for Substance Abuse Treatment (ICD-10-PCS; principal; 2018-10-04)
DX: F11.23 Opioid dependence with withdrawal (principal); F13.230 Sedative, hypnotic or anxiolytic dependence with withdrawal, uncomplicated; F17.210 Nicotine dependence, cigarettes, uncomplicated; F19.282 Other psychoactive substance dependence with psychoactive substance-induced sleep disorder; B18.2 Chronic viral hepatitis C; L90.5 Scar conditions and fibrosis of skin; Z59.0 Homelessness
CPT/HCPCS: 36415; 80053; 81003; 81015; 85025; 86593; J0735

== ENCOUNTER 2019-01-20 12:22 | Inpatient (IN) | payer OTHER ==
[2019-01-20 14:46] VITALS: BMI 23.7
--- NOTE | 2019-01-20 17:10 | HP ---
COWS - Scale Resting Pulse: 0= [place] 80 or Below Sweatin=Flushed/Facial Moisture Restless Observation: 1= Difficult to Sit Still Pupil Size: 0= Normal to Room Light Bone or Joint Aches: 1= Mild Discomfort Runny Nose/ Eye Tearin= Runny Nose/Eyes GI Upset > 30mins: 3= Vomiting/Diarrhea Tremor Observation: 1= Tremor [place], Not Seen Yawning Observation: 0= None Anxiety or Irritability: 2=Irritable/Anxious Goose Flesh Skin: 0=Smooth Skin COWS Score: 12 CIWA Score - Admission Criteria [facility]ASAS Guidelines: Admission for Medically Managed Detox: Requires at least one of the followin. CIWA greater than 12 2. Seizures within the past 24 hours 3. Delirium tremens within the past 24 hours 4. Hallucinations within the past 24 hours 5. Acute intervention needed for co occurring medical disorder 6. Acute intervention needed for co occurring psychiatric disorder 7. Severe withdrawal that cannot be handled at a lower level of care (continued vomiting, continued diarrhea, abnormal vital signs) requiring intravenous medication and/or fluids 8. Admission ROS [facility] Chief Complaint: Heroin detox Allergies/Adverse Reactions: Allergies Allergy/AdvReac Type Severity Reaction Status Date / Time No Known Allergies Allergy Verified 10/04/18 16:17 History of Present Illness: Pt is a 28 y/o male requesting heroin detox. Pt was last here in oct for detox. Endorses no remarkable sober period since then. Denies past or current SI/HI. Hx - Hep C, anxiety. Utox positive for Benzos. Pt states he is prescribed xanax for his anxiety. Spoke with the pharmacy at his [facility] pharmacy on [address] [place] [address] [phone] where it was confirmed that he picked up a prescription of xanax 2mg BID for 15 days on 01/19/19. Patient declined Nicotine patch nor gum Others' Prescriptions Patient Name: Robin Stafford Date: 1990 Address: [address] [place] [address] Sex: Male Rx Written Rx Dispensed Drug Quantity Days Supply Prescriber Name 08/31/2018 08/31/2018 suboxone 8 mg-2 mg sl film 30 15 LaksPankaj MD - Ebola screening Have you traveled outside of the country in the last 21 days: No (N) Have you had contact with anyone from an Ebola affected area: No Do you have a fever: No - Review of Systems Constitutional: Loss of Appetite, Night Sweats, Changes in sleep EENT: reports: Nose Congestion Respiratory: reports: No Symptoms reported Cardiac: reports: No Symptoms Reported GI: reports: Diarrhea : reports: No Symptoms Reported Musculoskeletal: reports: No Symptoms Reported Integumentary: reports: No Symptoms Reported Neuro: reports: No Symptoms reported Endocrine: reports: No Symptoms Reported Hematology: reports: No Symptoms Reported Psychiatric: reports: Orientated x3, Anxious Other Systems: Reviewed and Negative Patient History - Patient Medical History Hx Anemia: No Hx Asthma: No Hx Chronic Obstructive Pulmonary Disease (COPD): No Hx Cancer: No Hx Cardiac Disorders: No Hx Congestive Heart Failure: No Hx Hypertension: No Hx Hypercholesterolemia: No Hx Pacemaker: No HX Cerebrovascular Accident: No Hx Seizures: No Hx Dementia: No Hx Diabetes: No Hx Gastrointestinal Disorders: No Hx Liver Disease: No Hx Genitourinary Disorders: No Hx Sexually Transmitted Disorders: No Hx Renal Disease (ESRD): No Hx Thyroid Disease: No Hx Human Immunodeficiency Virus (HIV): No (12/21) Hx Hepatitis C: No Hx Depression: Yes Hx Suicide Attempt: No Hx Bipolar Disorder: No Hx Schizophrenia: No - Patient Surgical History Past Surgical History: No Hx Neurologic Surgery: No Hx Cataract Extraction: No Hx Cardiac Surgery: No Hx Lung Surgery: No Hx Breast Surgery: No Hx Breast Biopsy: No Hx Abdominal Surgery: No Hx Appendectomy: No Hx Cholecystectomy: No Hx Genitourinary Surgery: No Hx Section: No Hx Orthopedic Surgery: No Anesthesia Reaction: No - PPD History Previous Implant?: Yes Documented Results: Negative w/proof Implanted On Prior [facility] Admission?: Yes Date: 06/15/18 Results: NEGATIVE PPD to be Administered?: No - Reproductive History Patient is a Female of Child Bearing Age (11 -55 yrs old): No - Smoking Cessation Smoking history: Current every day smoker Have you smoked in the past 12 months: Yes Aproximately how many cigarettes per day: 10 Hx Chewing Tobacco Use: Yes Initiated information on smoking cessation: Yes 'Breaking Loose' booklet given: 01/20/19 - Substance & Tx. History Hx Alcohol Use: No Hx Substance Use: Yes Substance Use Type: Heroin Hx Substance Use Treatment: Yes - Substances abused Heroin Substance route: Injection Frequency: Daily Amount used: 15 Age of first use: 21 Date of last use: 01/20/19 Family Disease History - Family Disease History Family Disease History: Other: Father (dsa,alcohol) Admission Physical Exam [facility] - Vital Signs Vital Signs: Vital Signs - 24 hr 01/20/19 14:42 Temperature 98.7 F Pulse Rate 80 Respiratory 19 Rate Blood Pressure 116/70 - Physical General Appearance: Yes: Mild Distress, Anxious HEENTM: Yes: Within Normal Limits, Nasal Congestion Respiratory: Yes: Lungs Clear, Normal Breath Sounds, No Respiratory Distress Neck: Yes: No masses,lesions,Nodules, Trachea in good position Breast: Yes: Breast Exam Deferred Cardiology: Yes: Regular Rhythm, Regular Rate, S1, S2 Abdominal: Yes: Normal Bowel Sounds, Non Tender, Soft Genitourinary: Yes: Within Normal Limits Back: Yes: Normal Inspection Musculoskeletal: Yes: full range of Motion Extremities: Yes: Normal Capillary Refill, Normal Range of Motion, Non-Tender Neurological: Yes: Fully Oriented, Alert, Motor Strength 5/5 Integumentary: Yes: Within Normal Limits, Dry, Warm Lymphatic: Yes: Within Normal Limits - Diagnostic (1) Cannabis dependence Current Visit: No Status: Acute (2) IVDU (intravenous drug user) Current Visit: No Status: Acute (3) Opioid dependence with withdrawal Current Visit: Yes Status: Acute (4) Anxiety disorder Current Visit: No Status: Chronic (5) Nicotine dependence Current Visit: No Status: Chronic Qualifiers: Nicotine product type: cigarettes (6) Sedative hypnotic or anxiolytic dependence Current Visit: No Status: Acute Cleared for Admission [facility] - Detox or Rehab [facility] Level of Care: Medically Managed Detox Regimen/Protocol: Methadone Breathalyzer - Breathalyzer Breathalyzer: 0 Urine Drug Screen - Test Device Lot number: [id number] Expiration date: 10/05/20 - Control Is test valid?: Yes - Results Drug screen NEGATIVE: No Urine drug screen results: THC-Marijuana, FEN-Fentanyl, MOP-Opiates, BZO- Benzodiazepines Inpatient Rehab Admission - Rehab Decision to Admit Inpatient rehab admission?: No
[2019-01-20] MEDS ORDERED: MENTHOL/PHENOL 1 EACH UD MM PRN (17:26)
[2019-01-20] MEDS ORDERED: MAGNESIUM CITRATE 300 ML BOTTLE PO PRN (17:26)
[2019-01-20] MEDS ORDERED: BISMUTH SUBSALICYLATE 524 MG/30 ML UD PO PRN (17:26)
[2019-01-20] MEDS ORDERED: ACETAMINOPHEN 325 MG TABLET (FP) PO PRN ×2 (17:26)
[2019-01-20] MEDS ORDERED: MELATONIN 5 MG TABLETS PO PRN (17:26)
[2019-01-20] MEDS ORDERED: hydrOXYzine PAMOATE 25 MG CAPSULE (FP) PO PRN (17:26)
[2019-01-20] MEDS ORDERED: IBUPROFEN 400 MG TABLET (FP) PO PRN (17:26)
[2019-01-20] MEDS ORDERED: MAG HYDROX/AL HYDROX/SIMETH 30 ML UNIT-DOSE CUP PO PRN (17:26)
[2019-01-20] MEDS ORDERED: MAGNESIUM HYDROX 2400MG/30ML ORAL SUSPENSION 30 ML CUP PO PRN (17:26)
[2019-01-20] MEDS ORDERED: ALPRAZolam 2 MG TABLET PO PRN (17:29)
[2019-01-20] MEDS ORDERED: METHADONE HCL 10 MG TABLET PO STA (18:38)
[2019-01-20] MEDS: cloNIDine HCL 0.1 MG TABLET PO PRN (18:47)
[2019-01-20] MEDS ORDERED: clonazePAM 0.5 MG TABLET PO PRN (20:01)
--- NOTE | 2019-01-20 20:05 | PN ---
S Progress Note Note: Xanax 2mg BID switched to Klonopin 0.5mg BID because per pharmacy, xanax not available until tuesday. Pt was made aware of the change and he verbalized understanding.
[2019-01-20] MEDS ORDERED: METHADONE HCL 10 MG TABLET (FOR DETOX USE ONLY) PO ONE (23:00)
[2019-01-20] MEDS: THIAMINE HCL 100 MG TABLET (FP) PO SCH (23:49)
[2019-01-21] MEDS ORDERED: METHADONE HCL 5 MG TABLET (FOR DETOX USE ONLY) PO ONE (10:00)
[2019-01-21] MEDS ORDERED: COLLOIDAL OATMEAL 1 BAR EACH TP PRN (10:16)
[2019-01-21] MEDS ORDERED: AMMONIUM LACTATE 12% LOTION 225 GM BOTTLE TP PRN (10:17)
[2019-01-21] MEDS: PRENATAL VITAMINS W/ FOLIC ACID TABLET (FP) PO SCH (10:51)
[2019-01-21] MEDS: cloNIDine HCL 0.1 MG TABLET PO PRN ×2 (11:49→22:43)
[2019-01-21] MEDS: METHOCARBAMOL 500 MG TABLET PO PRN ×2 (11:49→22:43)
--- NOTE | 2019-01-21 15:41 | PN ---
BHS COWS - Scale Resting Pulse: 1= [place] 81-100 Sweatin= Chills/Flushing Restless Observation: 3= Extraneous Movement Pupil Size: 1= Pupils >than Normal Bone or Joint Aches: 2= Severe Diffuse Aches Runny Nose/ Eye Tearin= Runny Nose/Eyes GI Upset > 30mins: 2= Nausea/Diarrhea Tremor Observation of Outstretched Hands: 2= Slight Tremor Visible Yawning Observation: 0= None Anxiety or Irritability: 2=Irritable/Anxious Goose Flesh Skin: 0=Smooth Skin COWS Score: 16 BHS Progress Note (SOAP) Subjective: Runny nose, vomiting, chills, anxious. Patient stated he was Rx xanax 2mg bid and now feels sick because not getting any prn benzo. Patient is requesting more klonopin to help with withdrawal symptoms. Objective: 01/21/19 15:40 Last Vital Signs Temp Pulse Resp BP Pulse Ox 97.1 F L 81 18 108/50 L 01/21/19 14:21 01/21/19 14:21 01/21/19 14:21 01/21/19 14:21 No admission labs in chart (canceled), will reorder in AM Assessment: 01/21/19 15:43 Withdrawal symptoms Plan: Continue detox Encouraged PO water hydration Admission labs reordered in AM
--- NOTE | 2019-01-21 17:18 | PN ---
[facility] Progress Note Note: Patient with increased anxiety uncontrolled by Clonazepam 0.5 mg. States was getting Xanax 2 mg BID (as verified by [place] PDMP report). Patient Name: LENNIE RAPHAEL Date: 1990 Address: [place] [address] [address] Sex: Male Rx Written Rx Dispensed Drug Strength Quantity Days Supply Prescriber Name 12/27/2018 12/27/2018 SUBOXONE 8 MG-2 MG SL FILM 45.0 15 MD ANEESH, KENDRICK 12/27/2018 12/27/2018 ALPRAZOLAM 2 MG TABLET 14.0 7 MD ANEESH, KENDRICK 01/11/2019 01/11/2019 SUBOXONE 8 MG-2 MG SL FILM 63.0 21 MD ANEESH, KENDRICK 01/11/2019 01/11/2019 ALPRAZOLAM 2 MG TABLET 42.0 21 MD ANEESH, KENDRICK 12/27/2018 01/03/2019 ALPRAZOLAM 2 MG TABLET 14.0 7 MD MELENDREZ ERIN Patient Name: LENNIE RAPHAEL Date: 1990 Address: [place] [address] Sex: Male Rx Written Rx Dispensed Drug Strength Quantity Days Supply Prescriber Name 01/19/2019 01/19/2019 ALPRAZOLAM 2 MG TABLET 15.0 8 MD MELENDREZ ERIN Vital Signs 01/21/19 01/21/19 14:21 18:19 Temperature 97.1 F L 98.1 F Pulse Rate 81 63 Respiratory 18 16 Rate Blood Pressure 108/50 L 106/63 Plan: Will start on clonazepam.
[2019-01-21] MEDS: clonazePAM 0.5 MG TABLET PO PRN (17:38)
[2019-01-21] MEDS ORDERED: clonazePAM 0.5 MG TABLET PO PRN (21:00)
[2019-01-21] MEDS: THIAMINE HCL 100 MG TABLET (FP) PO SCH (22:40)
[2019-01-22] MEDS ORDERED: METHADONE HCL 10 MG TABLET (FOR DETOX USE ONLY) PO ONE (10:00)
[2019-01-22] MEDS: PRENATAL VITAMINS W/ FOLIC ACID TABLET (FP) PO SCH (10:10)
[2019-01-22] MEDS: clonazePAM 0.5 MG TABLET PO PRN ×2 (10:12→17:01)
[2019-01-22] MEDS: cloNIDine HCL 0.1 MG TABLET PO PRN (12:49)
--- NOTE | 2019-01-22 14:06 | PN ---
BHS COWS - Scale Resting Pulse: 0= [place] 80 or Below Sweatin= Chills/Flushing Restless Observation: 1= Difficult to Sit Still Pupil Size: 0= Normal to Room Light Bone or Joint Aches: 2= Severe Diffuse Aches Runny Nose/ Eye Tearin= None GI Upset > 30mins: 1= Stomach Cramp Tremor Observation of Outstretched Hands: 0= None Yawning Observation: 2= >3x During Session Anxiety or Irritability: 2=Irritable/Anxious Goose Flesh Skin: 0=Smooth Skin COWS Score: 9 BHS Progress Note (SOAP) Subjective: Body Aches, Interrupted sleep, Constipation. Objective: PATIENT A & O X 3. IN NO ACUTE DISTRESS. 01/22/19 14:05 Vital Signs Temperature 96.6 F L 01/22/19 09:29 Pulse Rate 68 01/22/19 09:29 Respiratory Rate 18 01/22/19 09:29 Blood Pressure 107/65 01/22/19 09:29 O2 Sat by Pulse Oximetry (%) ADMISSION LAB RESULTS PENDING. 01/22/19 14:06 Assessment: 01/22/19 14:06 WITHDRAWAL SYMPTOMS. Plan: CONTINUE DETOX. PATIENT SCHEDULED FOR D/C TOMORROW AM.
--- NOTE | 2019-01-22 15:57 | PN ---
[facility] Progress Note Note: PATIENT REPORTS THAT CURRENT WITHDRAWAL / DETOX SYMPTOMS ARE TOLERABLE AND THAT HE IS MANAGING THEM RELATIVELY WELL. AT PATIENT'S REQUEST, HE WAS GRANTED AN EARLY DISCHARGE FROM DETOX UNIT TODAY SO THAT HE IS ABLE TO GO ON TO [facility] ([place], [place]) FOR AFTERCARE. Loren DAVE NP
--- NOTE | 2019-01-22 16:00 | DS ---
[facility] Detox Discharge Summary Admission Date: 01/20/19 Discharge Date: 01/22/19 - History Present History: Cannabis Dependence, Opioid Dependence, Sedative Dependence Additional Comments: PATIENT REPORTS THAT CURRENT WITHDRAWAL / DETOX SYMPTOMS ARE MINIMAL IN DEGREE AND THAT HE FEELS WELL OVERALL AT TIME OF DISCHARGE FROM DETOX UNIT. PATIENT GOING TO [facility] ([place]) FOR AFTERCARE. PATIENT WAS DISCHARGED FROM DETOX UNIT TO BE TAKEN OVER TO REHAB UNIT IN STABLE MEDICAL CONDITION. Pertinent Past History: Hep C, Anxiety Disorder, Depression, History of Intravenous Drug Use. - Physical Exam Results Vital Signs: Vital Signs Temperature 96.6 F L 01/22/19 09:29 Pulse Rate 68 01/22/19 09:29 Respiratory Rate 18 01/22/19 09:29 Blood Pressure 107/65 01/22/19 09:29 O2 Sat by Pulse Oximetry (%) Pertinent Admission Physical Exam Findings: WITHDRAWAL SYMPTOMS. - Treatment Hospital Course: Detox Protocol Followed, Detoxed Safely, Responded well, Discharged Condition Good, Rehab Referral Accepted Patient has Accepted a Rehab Referral to: [facility] ([place], [place]). - Medication Discharge Medications: Ambulatory Orders Xanax 4 mg PO DAILY 01/20/19 - Diagnosis (1) Opioid dependence with withdrawal Current Visit: Yes Status: Acute (2) Cannabis dependence Current Visit: Yes Status: Acute (3) IVDU (intravenous drug user) Current Visit: Yes Status: Acute (4) Sedative hypnotic or anxiolytic dependence Current Visit: Yes Status: Acute (5) Anxiety disorder Current Visit: No Status: Chronic Qualifiers: Anxiety disorder type: unspecified anxiety disorder Qualified Code(s): F41.9 - Anxiety disorder, unspecified (6) Nicotine dependence Current Visit: Yes Status: Chronic Qualifiers: Nicotine product type: cigarettes Substance use status: uncomplicated Qualified Code(s): F17.210 - Nicotine dependence, cigarettes, uncomplicated - AMA Did Patient Leave Against Medical Advice: No
[2019-01-22 18:09] VITALS: BP 120/60; PULSE 65; TEMP 98.1
[2019-01-23] MEDS ORDERED: METHADONE HCL 5 MG TABLET (FOR DETOX USE ONLY) PO ONE (06:00)
[2019-01-24] MEDS ORDERED: clonazePAM 0.5 MG TABLET PO PRN (06:00)
== END 2019-01-22 06:50 | disposition other institution (70) | DRG 773 ==
LOC: YASAS 12:22 → Y6N 15:41
PROVIDERS: ADMIT Surgery; ATTEND Surgery
PROC: HZ2ZZZZ Detoxification Services for Substance Abuse Treatment (ICD-10-PCS; principal; 2019-01-20)
DX: F11.23 Opioid dependence with withdrawal (principal); F13.230 Sedative, hypnotic or anxiolytic dependence with withdrawal, uncomplicated; F12.20 Cannabis dependence, uncomplicated; F41.9 Anxiety disorder, unspecified; F32.9 Major depressive disorder, single episode, unspecified; B18.2 Chronic viral hepatitis C; Z59.0 Homelessness
CPT/HCPCS: J0735

== ENCOUNTER 2019-01-22 18:04 | Inpatient (IN) | payer OTHER | END 2019-01-27 09:45 | disposition left against medical advice (07) | LOC: YASAS 18:04 → Y3W 18:05 ==